=== PATIENT | female | born 1950 | race Caucasian/White ===

== ENCOUNTER 2023-03-29 06:45 | Outpatient (OUT) | payer MEDICARE, OTHER, SELFPAY ==
[2023-03-29 06:54] LABS: Basophils Absolute Auto 0.1 10^3/uL (0.0-0.1); Eosinophils Absolute Auto 0.2 10^3/uL (0.0-0.7); Eosinophils Percent Auto 4.1 % (0.9-7.0); Hematocrit 39.8 % (36.0-48.0); Immature Granulocytes Abs Auto 0.01 10^3/uL (0.00-0.03); Immature Granulocytes Pct Auto 0.2 % (0.0-0.5); Lymphocytes Absolute Auto 1.6 10^3/uL (1.2-3.8); Lymphocytes Percent Auto 27.6 % (20.5-60.0); Mean Corpuscular HGB Conc 32.7 g/dL (29.9-35.2); Mean Corpuscular Hemoglobin 29.7 pg (26.7-34.0); Mean Corpuscular Volume 91.1 fL (81.0-99.0); Mean Platelet Volume 10.1 fL (9.5-13.5); Monocytes Absolute Auto 0.5 10^3/uL (0.3-0.8); Monocytes Percent Auto 8.1 % (1.7-12.0); Neutrophils Absolute Auto 3.4 10^3/uL (1.4-6.5); Platelet Count 210 10^3/uL (150-450); Red Blood Count 4.37 10^6/uL (4.20-5.40); Red Cell Distribution Width 12.2 % (11.0-15.0); White Blood Count 5.8 10^3/uL (4.0-11.0)
[2023-03-29 07:18] LABS: Alanine Aminotransferase 23 U/L (14-59); Albumin Globulin Ratio 0.9; Albumin Level 3.5 g/dL (3.4-5.0); Alkaline Phosphatase 100 U/L (46-116); Anion Gap 11.4; Aspartate Amino Transferase 21 U/L (15-37); BUN Creatinine Ratio 16.5; Bilirubin Total 0.6 mg/dL (0.2-1.0); Calcium 9.5 mg/dL (8.5-10.1); Carbon Dioxide 29.5 mmol/L (21.0-32.0); Chloride 105 mmol/L (98-107); Chol HDL Ratio 3.4; Cholesterol 196 mg/dL (<=200); Estimated GFR (African America >60 (>=60); Estimated GFR (Non-African Ame 56 (>=60); Glucose 106 mg/dL (74-106); HDL Cholesterol 57 mg/dL (40-60); LDL Cholesterol Calculated 119.6 mg/dL; Potassium 3.9 mmol/L (3.5-5.1); Sodium 142 mmol/L (136-145); Total Protein 7.5 g/dL (6.4-8.2); Triglycerides 97 mg/dL (<=150); VLDL CHOLESTEROL 19.4 mg/dL
== END 2023-03-29 06:46 | disposition home or self-care (01) ==
LOC: LAB 06:45
PROVIDERS: PCP Family Medicine; Visit Provider Family Medicine
DX: I10 Essential (primary) hypertension (principal); E78.2 Mixed hyperlipidemia
CPT/HCPCS: 36415; 80053; 80061; 85025

== ENCOUNTER 2023-10-01 11:03 | Outpatient (OUT) | payer MEDICARE, OTHER, SELFPAY ==
--- NOTE | 2023-10-01 11:06 | MM_ITS ---
Patient Name: ALVARADO MEZA MR#: [id number] : 1950 Exam Date: 10/01/2023 Ordering Doctor: DR Cassandra Fraga M.D. RADIOLOGY REPORT PROCEDURE: MM TOMOSYNTHESIS SCREENING BI COMPARISON: MG MAMM RT DIAG FU, 10/14/2022. MG MAMM SCREEN 3D MAUREEN CAD, 09/28/2022. INDICATIONS: screening Calculator Name NCI Breast Cancer Risk Assessment Tool 5 Year Breast Cancer Risk 5.30% Lifetime Breast Cancer Risk 11.20% Personal Breast Cancer No Personal Ovarian Cancer No Treatments Excision Family Cancers Sister with breast cancer at age 61; Brother with throat cancer at age 60; Brother with prostate cancer at age 70. LOCATION: [facility] BREAST COMPOSITION: Heterogeneously dense,which may obscure small masses. FINDINGS: DIAGNOSTIC CATEGORY 2--BENIGN FINDING. NO CHANGE FROM COMPARISON. Scattered benign-appearing nodules are present. Scattered benign-appearing calcifications are present. Scattered benign-appearing lymph nodes are present. RIGHT BREAST: No significant suspicious finding. Two micro clip markers upper-outer quadrant, grossly stable adjacent calcifications LEFT BREAST: No significant suspicious finding. Stable micro clip marker lower inner quadrant with adjacent calcifications RECOMMENDATIONS: ROUTINE MAMMOGRAM AND CLINICAL EVALUATION IN 12 MONTHS. PLEASE NOTE: A NORMAL MAMMOGRAM DOES NOT EXCLUDE THE POSSIBILITY OF BREAST CANCER. A CLINICALLY SUSPICIOUS PALPABLE LUMP SHOULD BE BIOPSIED. Dictated by: Armnado August MD on 10/01/2023 at 13:23 Approved by: Armando August MD on 10/01/2023 at 13:25
== END 2023-10-01 11:04 | disposition home or self-care (01) ==
LOC: MAMMO 11:03
PROVIDERS: PCP Family Medicine; Visit Provider Family Medicine
DX: Z12.31 Encounter for screening mammogram for malignant neoplasm of breast (principal); Z80.3 Family history of malignant neoplasm of breast; Z80.42 Family history of malignant neoplasm of prostate; Z80.8 Family history of malignant neoplasm of other organs or systems
CPT/HCPCS: 77063; 77067

== ENCOUNTER 2023-10-11 22:41 | Emergency (ER) | payer MEDICARE, OTHER, SELFPAY ==
[2023-10-11 22:45] VITALS: BP 148/70; PULSE 87; RESP 16; TEMP 36.9; O2SAT 95; BMI 28.3
--- OUTSIDE RECORDS SUMMARY | 2023-10-11 22:48 | XMS_ITS | CCD ---
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 Name Role Phone MARCELINO MCPHERSON Unavailable Unavailable BALL, MARCELINO Beltran Unavailable Unavailable VALERO, ANJU Unavailable Unavailable VALERO, DR ANJU Beltran Admitting Unavailable VALERO, DR ANJU Beltran Attending Unavailable VALERO, DR ANJU Beltran Primary Care Unavailable Ziebbarbara, DR Marrero Consulting Unavailable VALERO, DR ANJU Beltran Consulting Unavailable VLAERO, DR ANJU Beltran Admitting Unavailable VALERO, DR ANJU Beltran Attending Unavailable VALERO, DR ANJU Beltran Primary Care Unavailable [place], DR ALYSON Pisano Consulting Unavailable VALERO, DR ANJU Beltran Consulting Unavailable VALERO, DR ANJU Beltran Admitting Unavailable VALERO, DR ANJU Beltran Attending Unavailable VALERO, DR ANJU Beltran Primary Care Unavailable VALERO, DR ANJU Beltran Consulting Unavailable GRILLIS, DR KEVIN Beltran Admitting Unavailabl e GRENEIDA, DR KEVIN Beltran Attending Unavailabl e VALERO, DR ANJU Beltran Primary Care Unavailable VALERO, DR ANJU Beltran Admitting Unavailable VALERO, DR ANJU Beltran Attending Unavailable VALERO, DR ANJU Beltran Primary Care Unavailable VALERO, DR ANJU Beltran Consulting Unavailable VALERO, DR ANJU Beltran Admitting Unavailable VALERO, DR ANJU Beltran Attending Unavailable VALERO, DR ANJU Beltran Primary Care Unavailable GRILLIArsenio, DR KEVIN Beltran Admitting Unavailabl e GRENEIDA, DR KEVIN Beltran Attending Unavailabl e VALERO, DR ANJU Beltran Primary Care Unavailable GRILLIArsenio, DR KEVIN Beltran Consulting Unavailchelita e MORGOArsenio, COLLIN Consulting Unavailable JEFFERSON PATEL Consulting Unavailable VALERO, DR ANJU Beltran Admitting Unavailable VALERO, DR ANJU Beltran Attending Unavailable VALERO, DR ANJU Beltran Primary Care Unavailable Zieber, DR Marrero Consulting Unavailable VALERO, DR AJNU Beltran Consulting Unavailable Problems Active Problems Problem Classification Problem Date Documented Date Episodic/Chronic Disorders of lipid metabolism (1 source) Hyperlipidemia, unspecified; Translations: [HYPERLIPIDEMIA UNSPECIFIED] Onset: 10-10-2022 Chronic Esophageal disorders (6 sources) 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; Translations: [Esophageal obstruction] Onset: 07-01-2022 Chronic Essential hypertension (1 source) Essential (primary) hypertension; Translations: [ESSENTIAL PRIMARY HYPERTENSION] Onset: 07-06-2022 Chronic Gastritis and duodenitis (1 source) Unspecified chronic gastritis without bleeding; Translations: [UNS CHRONIC GASTRITIS W/O BLEEDING] Onset: 07-06-2022 Chronic Other non-traumatic joint disorders (4 sources) Pain in right hip; Translations: [PAIN IN RIGHT HIP] Onset: 09-01-2022 Episodic Other nutritional; endocrine; and metabolic disorders (1 source) Obesity, unspecified; Translations: [OBESITY UNSPECIFIED] Onset: 07-06-2022 Chronic Other screening for suspected conditions (not mental disorders or infectious disease) (5 sources) Encounter for screening mammogram for malignant neoplasm of breast; Translations: [Other abnormal and inconclusive findings on diagnostic imaging of breast] Onset: 09-28-2022 Episodic Residual codes; unclassified (1 source) Family history of malignant neoplasm of breast; Translations: [FAMILY HX MALIG NEOPLASM OF BREAST] Onset: 10-02-2022 Episodic Residual codes; unclassified (1 source) Family history of malignant neoplasm of other respiratory and intrathoracic organs; Translations: [FAM HX MAL NEOPLSM OTH RESP AND IT ORGN] Onset: 10-02-2022 Episodic Residual codes; unclassified (1 source) Family history of malignant neoplasm of other organs or systems; Translations: [FAM HX MALIG NEOPLASM OTH ORGN/SYS] Onset: 10-02-2022 Episodic Unclassified (1 source) PERSONAL HISTORY OF COVID-19; Translations: [PERSONAL HISTORY OF COVID-19] Onset: 07-06-2022 Unclassified (3 sources) CONTACT W/AND (SUSP) EXPOS COVID-19; Translations: [CONTACT W/AND (SUSP) EXPOS COVID-19] Onset: 05-01-2022 Past or Other Problems Problem Classification Problem Date Documented Da te Episodic/Chronic Other aftercare (1 source) 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; Translations: [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 Admission #: [id number] Family : Order #: [id number] CLICK HERE TO VIEW EXAM RADIOLOGY REPORT PROCEDURE: MAMMOGRAM RIGHT DIAGNOSTIC DIGITAL FOLLOW UP, 10/14/2022, 10:25 ULTRASOUND BREAST RIGHT LIMITED, 10/14/2022, 11:11 COMPARISON: MG MAMM SCREEN 3D MAUREEN CAD, 09/28/2022. INDICATIONS: Abnormal findings on diagnostic imaging of breast Calculator Name NCI Breast Cancer Risk Assessment Tool 5 Year Breast Cancer Risk 5.30% Lifetime Breast Cancer Risk 11.90% Personal Breast Cancer No Personal Ovarian Cancer No Treatments Excision Family Cancers Sister with breast cancer at age 61; Brother with throat cancer at age 60; Brother with prostate cancer at age 70. LOCATION: [facility] BREAST COMPOSITION: Heterogeneously dense,which may obscure small masses. FINDINGS: DIAGNOSTIC CATEGORY 2--BENIGN FINDING. NO CHANGE FROM COMPARISON. Spot magnification views demonstrate geographic and clustered microcalcifications in the right breast with to micro clip markers. Three focal nodules are identified measuring 5.8, 5.4 and 4.7 mm. Ultrasound was performed demonstrating 3 focal areas of anechoic echogenicity measuring 5.6, 3.5 and 4.3 mm. Additional areas of punctate hyperechogenicity consistent with the calcifications seen by mammogram. No further evaluation is required. Return to yearly screening mammography. RECOMMENDATIONS: ROUTINE MAMMOGRAM AND CLINICAL EVALUATION IN 12 MONTHS. PLEASE NOTE: A NORMAL MAMMOGRAM DOES NOT EXCLUDE THE POSSIBILITY OF BREAST CANCER. A CLINICALLY SUSPICIOUS PALPABLE LUMP SHOULD BE BIOPSIED. Dictated by: Alyson August MD on 10/14/2022 at 11:35 Approved by: Alyson August MD on 10/14/2022 at 11:37 Normal [facility] US BREAST RIGHT LIMITEDon US BREAST RIGHT LIMITED Patient: ALVARADO MEZA Exam Date: 10/14/2022 : 1950 Gender:F Ordering : DR ANJU VALERO M.D. Admission #: [id number] Family : Order #: [id number] CLICK HERE TO VIEW EXAM RADIOLOGY REPORT PROCEDURE: MAMMOGRAM RIGHT DIAGNOSTIC DIGITAL FOLLOW UP, 10/14/2022, 10:25 ULTRASOUND BREAST RIGHT LIMITED, 10/14/2022, 11:11 COMPARISON: MG MAMM SCREEN 3D MAUREEN CAD, 09/28/2022. INDICATIONS: Abnormal findings on diagnostic imaging of breast Calculator Name NCI Breast Cancer Risk Assessment Tool 5 Year Breast Cancer Risk 5.30% Lifetime Breast Cancer Risk 11.90% Personal Breast Cancer No Personal Ovarian Cancer No Treatments Excision Family Cancers Sister with breast cancer at age 61; Brother with throat cancer at age 60; Brother with prostate cancer at age 70. LOCATION: [facility] BREAST COMPOSITION: Heterogeneously dense,which may obscure small masses. FINDINGS: DIAGNOSTIC CATEGORY 2--BENIGN FINDING. NO CHANGE FROM COMPARISON. Spot magnification views demonstrate geographic and clustered microcalcifications in the right breast with to micro clip markers. Three focal nodules are identified measuring 5.8, 5.4 and 4.7 mm. Ultrasound was performed demonstrating 3 focal areas of anechoic echogenicity measuring 5.6, 3.5 and 4.3 mm. Additional areas of punctate hyperechogenicity consistent with the calcifications seen by mammogram. No further evaluation is required. Return to yearly screening mammography. RECOMMENDATIONS: ROUTINE MAMMOGRAM AND CLINICAL EVALUATION IN 12 MONTHS. PLEASE NOTE: A NORMAL MAMMOGRAM DOES NOT EXCLUDE THE POSSIBILITY OF BREAST CANCER. A CLINICALLY SUSPICIOUS PALPABLE LUMP SHOULD BE BIOPSIED. Dictated by: Alyson August MD on 10/14/2022 at 11:35 Approved by: Alyson August MD on 10/14/2022 at 11:37 Normal [facility] MG MAMM SCREEN 3D MAUREEN CADon 09-28-2022 MG MAMM SCREEN 3D MAUREEN CAD Patient: ALVARADO MEZA Exam Date: 09/28/2022 : 1950 Gender:F Ordering : DR ANJU VALERO M.D. Admission #: [id number] Family : Order #: [id number] CLICK HERE TO VIEW EXAM RADIOLOGY REPORT PROCEDURE: MAMMOGRAM SCREENING 3D BILATERAL CAD COMPARISON: MG MAMM SCREEN MAUREEN W CAD, 09/12/2020. MAMMO POST BIOPSY LEFT, 09/24/2021. MG MAMM SCREEN 3D MAUREEN CAD, 09/15/2021. INDICATIONS: Screening mammography Calculator Name NCI Breast Cancer Risk Assessment Tool 5 Year Breast Cancer Risk 5.30% Lifetime Breast Cancer Risk 11.90% Personal Breast Cancer No Personal Ovarian Cancer No Treatments Excision Family Cancers Sister with breast cancer at age 61; Brother with throat cancer at age 60; Brother with prostate cancer at age 70. LOCATION: [facility] BREAST COMPOSITION: Heterogeneously dense,which may obscure small masses. FINDINGS: DIAGNOSTIC CATEGORY 0--INCOMPLETE: NEED ADDITIONAL IMAGING EVALUATION. RIGHT BREAST: Several tiny calcifications, and a 7 mm nodule with adjacent 6 mm nodule within the anterior right breast lower outer quadrant. Spot magnification views and ultrasound evaluation recommended. LEFT BREAST: Biopsy marker clip within upper inner quadrant in clearing of previously seen cyst. No significant suspicious finding. RECOMMENDATIONS: ADDITIONAL MAMMOGRAPHIC VIEWS REQUIRED: RIGHT BREAST - RIGHT CRANIOCAUDAL SPOT MAGNIFICATION VIEW - RIGHT OBLIQUE SPOT MAGNIFICATION VIEW - ULTRASOUND: RIGHT BREAST Active recommendations from prior exams: ROUTINE MAMMOGRAM AND CLINICAL EVALUATION IN [#MONTHS] MONTHS. Due on 10/02/2022. PLEASE NOTE: A NORMAL MAMMOGRAM DOES NOT EXCLUDE THE POSSIBILITY OF BREAST CANCER. A CLINICALLY SUSPICIOUS PALPABLE LUMP SHOULD BE BIOPSIED. Dictated by: Janes Morfin M.D. on 09/29/2022 at 12:00 Approved by: Janes Morfin M.D. on 09/29/2022 at 12:10 Normal [facility] Covid-19 PCR (CVDTBH)on SARS-CoV-2 (COVID-19) RNA OLINDA+probe Ql (Unsp spec) Not detected Normal NOT DETECTED [facility] Comment on above: Result Comment: This test is not yet approved or cleared by the [place] FDA. When there are no FDA-approved or cleared tests available, and other criteria are met, FDA can make tests available under an emergency access mechanism called an Emergency Use Authorization (EUA). The EUA for this test is supported by the [place] of Health and Human Service's (HHS's) declaration that circumstances exist to justify the emergency use of in vitro diagnostics for the detection and/or diagnosis of the virus that causes COVID-19. This EUA will remain in effect (meaning this test can be used) for the duration of the COVID-19 declaration justifying emergency of IVDs, unless it is terminated or revoked by FDA (after which the test may no longer be used). When diagnostic testing is negative, the possibility of a false negative should be considered in the context of a patient's recent exposures and the presence of clinical signs and symptoms consistent with SARS-CoV-2. Performed By: #### C VDTB #### [facility] [address] [place] [address] Dr. Valentin Shin CBC AUTO DIFFon 03-06-2022 BASO # 0.1 103/ul Normal 0.0-0.1 [facility] Comment on above: Performed By: #### C BC #### [facility] [address] [place] [address] Dr. Valentin Shin Basophils/100 WBC (Bld) 0.7 % Normal 0.2-2.0 [facility] Comment on above: Performed By: #### C BC #### [facility] [address] [place] [address] Dr. Valentin Shin EO # 0.1 103/ul Normal 0.0-0.7 [facility] Comment on above: Performed By: #### C BC #### [facility] [address] [place] [address] Dr. Valentin Shin Eosinophils/100 WBC (Bld) 2.0 % Normal 0.9-7.0 [facility] Comment on above: Performed By: #### C BC #### [facility] [address] [place] [address] Dr. Valentin Shin Erythrocyte distribution width (RBC) [Ratio] 12.4 % Normal 11.0-15.0 [facility] Comment on above: Performed By: #### C BC #### [facility] [address] [place] [address] Dr. Valentin Shin Hematocrit (Bld) [Volume fraction] 38.9 % Normal 36.0-48.0 [facility] Comment on above: Performed By: #### C BC #### [facility] [address] [place] [address] Dr. Valentin Shin Hemoglobin (Bld) [Mass/Vol] 12.9 g/dL Normal 12.0-16.0 [facility] Comment on above: Performed By: #### C BC #### [facility] [address] [place] [address] Dr. Valentin Shin IG # 0.01 10e3/ul Normal 0.00-0.03 [facility] Comment on above: Performed By: #### C BC #### [facility] [address] [place] [address] Dr. Valentin Shin IG % 0.1 % Normal 0.0-0.5 [facility] Comment on above: Performed By: #### C BC #### [facility] [address] [place] [address] Dr. Valentin Shin LYMPH # 1.3 103/ul Normal 1.2-3.8 [facility] Comment on above: Performed By: #### C BC #### [facility] [address] [place] [address] Dr. Valentin Shin Lymphocytes/100 WBC (Bld) 18.2 % Critically low 20.5-60.0 [facility] Comment on above: Performed By: #### C BC #### [facility] [address] [place] [address] Dr. Valentin Shin MANUAL DIFF REQ NO Normal [facility] Comment on above: Performed By: #### C BC #### [facility] [address] [place] [address] Dr. Valentin Shin MCH (RBC) [Entitic mass] 30.1 pg Normal 26.7-34.0 [facility] Comment on above: Performed By: #### C BC #### [facility] [address] [place] [address] Dr. Valentin Shin MCHC (RBC) [Mass/Vol] 33.2 g/dL Normal 29.9-35.2 [facility] Comment on above: Performed By: #### C BC #### [facility] [address] [address] [address] Valentin Shin MCV (RBC) [Entitic vol] 90.7 fL Normal 81.0-99.0 [facility] Comment on above: Performed By: #### C BC #### [facility] [address] [place] [address] Dr. Valentin Shin MONO # 0.6 103/ul Normal 0.3-0.8 [facility] Comment on above: Performed By: #### C BC #### [facility] [address] [place] [address] Dr. Valentin Shin Monocytes/100 WBC (Bld) 8.4 % Normal 1.7-12.0 [facility] Comment on above: Performed By: #### C BC #### [facility] [address] [place] [address] Dr. Valentin Shin NEUT # 5.0 103/ul Normal 1.4-6.5 [facility] Comment on above: Performed By: #### C BC #### [facility] [address] [place] [address] Dr. Valentin Shin Neutrophils/100 WBC (Bld) 70.6 % Normal 43.0-75.0 [facility] Comment on above: Performed By: #### C BC #### [facility] [address] [place] [address] Dr. Valentin Shin Platelet mean volume (Bld) [Entitic vol] 9.9 fL Normal 9.5-13.5 [facility] Comment on above: Performed By: #### C BC #### [facility] [address] [place] [address] Dr. Valentin Shin PLT 202 103/ul Normal 150-450 [facility] Comment on above: Performed By: #### C BC #### [facility] [address] [place] [address] Dr. Valentin Shin RBC 4.29 106/ul Normal 4.20-5.40 [facility] Comment on above: Performed By: #### C BC #### [facility] [address] [place] [address] Dr. Valentin Shin WBC 7.0 103/ul Normal 4.0-11.0 [facility] Comment on above: Performed By: #### C BC #### [facility] [address] [address] [address] Valentin Shin LIPID PROFILEon 03-06-2022 CHOL-HDL RATIO NORM SEE BELOW Normal [facility] Comment on above: Result Comment: 3.3 - 4.4 LOW RISK 4.4 - 7.1 AVERAGE RISK 7.1 - 11.0 MODERATE RISK >11.0 HIGH RISK Performed By: #### L IPID, CMP #### [facility] [address] [address] [address] Valentin Shin Cholesterol [Mass/Vol] 177 mg/dL Normal <=200 [facility] Comment on above: Performed By: #### L IPID, CMP #### [facility] [address] [address] [address] Valentin Shin Cholesterol in HDL [Mass/Vol] 57 mg/dL Normal 40-60 [facility] Comment on above: Performed By: #### L IPID, CMP #### [facility] [address] [address] [address] Valentin Shin Cholesterol in LDL [Mass/Vol] 101.0 mg/dL Normal [facility] Comment on above: Performed By: #### L IPID, CMP #### [facility] [address] [address] [address] Valentin Shin Cholesterol.total/ Cholesterol in HDL [Mass ratio] 3.1 {ratio} Normal [facility] Comment on above: Performed By: #### L IPID, CMP #### [facility] [address] [address] [address] Valentin Shin HDL NORMAL > or = 60 mg/dl - LO W CARDIOVASCULAR RISK <40 mg/dl - HIGH CARDIOVASCULAR RISK Normal [facility] Comment on above: Performed By: #### L IPID, CMP #### [facility] [address] [address] [address] Valentin Shin LDL CALC NORMAL SEE BELOW Normal [facility] Comment on above: Result Comment: <100 mg/dl OPTIMAL 100 - 129 mg/dl NEAR OR ABOVE OPTIMAL 130 - 159 mg/dl BORDERLINE HIGH 160 - 189 mg/dl HIGH >190 mg/dl VERY HIGH Performed By: #### L IPID, CMP #### [facility] [address] [place] [address] Dr. Valentin Shin Triglyceride [Mass/Vol] 95 mg/dL Normal <=150 [facility] Comment on above: Performed By: #### L IPID, CMP #### [facility] [address] [place] [address] Dr. Valentin Shin VLDL CALC 19.0 mg/dL Normal [facility] Comment on above: Performed By: #### L IPID, CMP #### [facility] [address] [place] [address] Dr. Valentin Shin PROF 14(COMP METB)on 022 Albumin [Mass/Vol] 3.7 g/dL Normal 3.4-5.[address] [facility] Comment on above: Performed By: #### L IPID, CMP #### [facility] [address] [place] [address] Dr. Valentin Shin Albumin/Globulin [Mass ratio] 1.0 {ratio} Normal [facility] Comment on above: Performed By: #### L IPID, CMP #### [facility] [address] [place] [address] Dr. Valentin Shin ALP [Catalytic activity/Vol] 93 U/L Normal 46-116 [facility] Comment on above: Performed By: #### L IPID, CMP #### [facility] [address] [place] [address] Dr. Valentin Shin ALT [Catalytic activity/Vol] 20 U/L Normal 14-59 [facility] Comment on above: Performed By: #### L IPID, CMP #### [facility] [address] [place] [address] Dr. Valentin Shin Anion gap [Moles/Vol] 10.2 mmol/L Normal [facility] Comment on above: Performed By: #### L IPID, CMP #### [facility] [address] [place], [place] [id number] Dr. Valentin Shin AST [Catalytic activity/Vol] 17 U/L Normal 15-37 [facility] Comment on above: Performed By: #### L IPID, CMP #### [facility] [address] [place] [address] Dr. Valentin Shin Bilirubin [Mass/Vol] 0.6 mg/dL Normal 0.2-1.0 [facility] Comment on above: Performed By: #### L IPID, CMP #### [facility] [address] [place] [address] Dr. Valentin Shin Calcium [Mass/Vol] 9.8 mg/dL Normal 8.5-10.[address] [facility] Comment on above: Performed By: #### L IPID, CMP #### [facility] [address] [place] [address] Dr. Valentin Shin Chloride [Moles/Vol] 107 mmol/L Normal 98-107 [facility] Comment on above: Performed By: #### L IPID, CMP #### [facility] [address] [place] [address] Dr. Valentin Shin CO2 [Moles/Vol] 28.9 mmol/L Normal 21.0-32.0 [facility] Comment on above: Performed By: #### L IPID, CMP #### [facility] [address] [place] [address] Dr. Valentin Shin Creatinine [Mass/Vol] 0.88 mg/dL Normal 0.55-1.02 [facility] Comment on above: Performed By: #### L IPID, CMP #### [facility] [address] [place] [address] Dr. Valentin Shin EGFR-AF SAMOAN >60 Normal >=60 [facility] Comment on above: Performed By: #### L IPID, CMP #### [facility] [address] [place] [address] Dr. Valentin Shin EGFR-NON AF SAMOAN >60 Normal >=60 [facility] Comment on above: Performed By: #### L IPID, CMP #### [facility] [address] [address] [address] Valentin Shin Globulin (S) [Mass/Vol] 3.6 g/dL Normal [facility] Comment on above: Performed By: #### L IPID, CMP #### [facility] [address] [address] [address] Valentin Shin Glucose [Mass/Vol] 102 mg/dL Normal 74-106 [facility] Comment on above: Performed By: #### L IPID, CMP #### [facility] [address] [address] [address] Valentin Shin Potassium [Moles/Vol] 4.1 mmol/L Normal 3.5-5.1 [facility] Comment on above: Performed By: #### L IPID, CMP #### [facility] [address] [place] [address] Dr. Valentin Shin Protein [Mass/Vol] 7.3 g/dL Normal 6.4-8.2 [facility] Comment on above: Performed By: #### L IPID, CMP #### [facility] [address] [address] [address] Valentin Shin Sodium [Moles/Vol] 142 mmol/L Normal 136-145 [facility] Comment on above: Performed By: #### L IPID, CMP #### [facility] [address] [address] [address] Valentin Shin Urea nitrogen [Mass/Vol] 17.0 mg/dL Normal 7.0-18.0 [facility] Comment on above: Performed By: #### L IPID, CMP #### [facility] [address] [place] [address] Dr. Valentin Shin Urea nitrogen/Creatinin e [Mass ratio] 19.3 mg/mg Normal [facility] Comment on above: Performed By: #### L IPID, CMP #### [facility] [address] [place] [address] Dr. Valentin Shin OVER READ - NCon 04-20-2018 OVER READ - [place] DATE OF EXAM: Apr 20 2018 1:16PMCLINICAL HISTORY/ Name: ANASTACIO MEZA:OVER READ - [place]; 04/20/2018 1:16 pmINDICATION:score.COMP FLAVIASON:None. ERING CLINICIAN:MARCELINO ALVA:The following is to serve as an over-read for a coronary artery calcium score, to evaluate the extra arterial structures.Contiguous unenhanced CT sections are performed from the level of the main pulmonary artery to the upper abdomen.FINDINGS:Small linear areas of atelectasis are identified in the left lower lobe and medial right lower lobe. There is a subpleural nodule within the lateral aspect of the lingula measuring 5 mm in diameter.There is no sign of pathologic lymph node enlargement. The heart is mildly enlarged. There is no pericardial or pleural effusion.Images through the upper most abdomen demonstrate a small hiatal hernia though otherwise unremarkable.Visualized osseous and soft tissue structures of the chest wall are intact.CONCLUSION: IMPRESSION:Bibasilar linear atelectasis, greater on the left.5 mm sub nodule in the lingula. Continued CT surveillance is recommended which can be performed in 6 months.Small hiatal hernia. Normal [facility] Encounters Encounter Date Encounter Type Care Provider Facility Start: 10-14-2022 End: 10-15-[address] ANJU VALERO Facility:[facility] Start: 09-28-2022 End: 09-29-[address] ANJU VLAERO Facility:[facility] Start: 09-01-2022 End: 09-09-[address] ANJU VALERO Facility:[facility] Start: 08-19-2022 End: 08-20-[address] ANJU VALERO Facility:[facility] Start: 07-01-2022 End: 07-01-[address] KEVIN MARTI Facility:[facility] Start: 06-27-[address] KEIVN MARTI Fa cility:[facility] Start: 04-28-2022 End: 04-29-[address] ANJU VALERO Facility:[facility] Start: 03-10-2022 Encounter for genera l adult medical examination without abnormal findings DR ANJU VALERO [facility] Start: 03-06-2022 End: 03-07-[address] ANJU VALERO Facility:[facility] Start: 03-06-2022 End: 03-07-2022 Encounter for general adult medical examination without abnormal findings DR ANJU VALERO Facility:[facility] Start: 04-20-2018 Patient encounter [facility] Fa cility:[id number] Start: 04-20-2018 Patient encounter [facility] ity:[id number] Payers Date Payer Category Payer Medicare [id number] 1961 Unknown [id number] 1950 Unknown [id number] 2.16.84 [id number] 1950 Unknown [id number] 2.16.84 [id number] 1950 Unknown [id number] 2.16.84 [id number] 1950 Unknown [id number] 2.16.84 [id number] 1950 Unknown [id number] 2.16.84 [id number] 1950 Unknown [id number] 2.16.84 [id number] 1950 Unknown [id number] 2.16.84 [id number] 1950 Unknown [id number] 2.16.84 [id number] Unknown ALVARADO MEZA Clinical Note 08-20-2022 Note Date & Type Note Facility 08-20-2022 Note PROCEDURE: XR HIP RT 2 3V WO PELVIS HISTORY: Pain in right hip joint ; acute right hip pain, no known injury COMPARISON: None. FINDINGS: BONES:No fracture, acute abnormality, or significant arthropathy. SOFT TISSUES:No visible soft tissue swelling. EFFUSION:None visible. OTHER: Negative. IMPRESSION: 1. No acute bone abnormality or significant degenerative joint disease. Electronically authenticated by: JANES MORFIN Date: 2022-08-19 23:15 [facility] Summary Purpose Family History No Family History Records FoundNo Family History Records FoundNo Family History Records Found Advance Directives No Advanced Directives Records FoundNo Advanced Directives Records FoundNo Advanced Directives Records Found Additional Source Comments INFORMATION SOURCE (unrecogn ized section and content) DATE CREATED AUTHOR 04/21/2018 [facility] DATE CREATED AUTHOR AUTHOR'S ORGANIZ ATION 04/21/2018 [facility] DATE CREATED AUTHOR AUTHOR'S ORGANIZ ATION 10/15/2022 [facility] FOR RECORDS PERTAINING TO PATIENTS WHO ARE OR HAVE BEEN ENROLLED IN A CHEMICAL DEPENDENCY/SUBSTANCEABUSE PROGRAM, SOME INFORMATION MAY BE OMITTED. This clinical summary was aggregated from multiple sources. Caution should be exercised in using it in the provision of clinical care. This summary normalizes information from multiple sources, and as a consequence, information in this document may materially change the coding, format and clinical context of patient data. In addition, data may be omitted in some cases. CLINICAL DECISIONS SHOULD BE BASED ON THE PRIMARY CLINICAL RECORDS. [email or web address] provides no warranty or guarantee of the accuracy or completeness of information in this document.
[2023-10-11 22:56] VITALS: O2SAT 96
--- NOTE | 2023-10-11 22:57 | ED_ITS ---
HPI - Nausea/Vomiting/Diarrhea General Chief complaint: Nausea/Vomiting/Diarrhea Stated complaint: Flu Like Symptoms Time Seen by Provider: 10/11/23 22:48 Source: patient Mode of arrival: walk-in History of Present Illness HPI Narrative: This 73-year-old female presents for evaluation of copious nasal drainage with a dry cough and nausea with 4 episodes of vomiting. The patient states that she had her just got back from a cruise in the [facility]. He started becoming sick during their cruise and she did not think she was going to catch it until this morning when she started with cough and runny nose. She states that her nose has been running so much that she used a whole box of Kleenex. She has also had nausea with 4 episodes of vomiting throughout the day. She has not had any diarrhea. She has not had a fever. She denies any specific pain complaint but states she feels like she is 73 and typically she does not feel her age. She requests some zofran for her nausea, she had some in the past but threw it out. Denies any abdominal pain. She states she did not think she was going to be able to get through the night with the nausea and runny nose. She has been vaccinated against respiratory syncytial virus, influenza and Covid 19. She is a nonsmoker. She denies any chest pain or difficulty breathing or swallowing. Related Data Home Medications Medication Instructions Recorded Confirmed alprazolam 0.25 mg tablet mg PO PRN anxiety 10/11/23 atorvastatin 10 mg tablet 10 mg PO DAILY 10/11/23 10/11/23 metoprolol succinate 25 mg 25 mg PO DAILY 10/11/23 10/11/23 tablet,extended release 24 hr omeprazole 40 mg capsule,delayed 40 mg PO DAILY 10/11/23 10/11/23 release ramipril 2.5 mg capsule 2.5 mg PO DAILY 10/11/23 10/11/23 Allergies Allergy/AdvReac Type Severity Reaction Status Date / Time No Known Drug Allergies Allergy Verified 10/11/23 22:49 Review of Systems ROS Status of ROS 10 or more systems reviewed and unremark able except as noted in history and below Exam Narrative Exam Narrative: Nurses note and vital signs reviewed and patient is not hypoxic. Blood pressure noted to be elevated at 148/70 General: The patient appears well and in no apparent distress. Patient is resting comfortably on cart. Skin: Warm, dry, no pallor noted. There is no rash noted. Head: Normocephalic, atraumatic Eye: Normal conjunctiva, no drainage, EOMI. PERRL Ears, Nose, Mouth, and Throat: oral mucosa is moist. Nares patent. Mouth without vesicles. Audible nasal congestion, no swelling of the tongue, uvula or pharyngeal soft tissues Cardiovascular: Regular Rate and Rhythm S1S2, pulses are brisk and equal bilaterally Respiratory: Patient is in no distress, no accessory muscle use, lungs are bro r to auscultation, no wheezing, rales or rhonchi Back: non-tender, no CVA tenderness bilaterally to percussion. GI: Normal bowel sounds, no tenderness to palpation, no masses appreciated. No rebound, guarding, or rigidity noted. Musculoskeletal: The patient has no evidence of calf tenderness, no pitting edema, symmetrical pulses noted bilaterally Neurological: A&O x4, normal speech Psychiatric: Cooperative Constitutional Vital Signs, click to edit/add: Last Vital Signs Temp 98.5 F 10/11/23 22:45 Pulse 87 10/11/23 22:45 Resp 16 10/11/23 22:45 BP 148/70 H 10/11/23 22:45 Pulse Ox 96 10/11/23 22:56 O2 Del Method Room Air 10/11/23 22:56 Course Vital Signs Vital signs: Vital Signs Temperature 98.5 F 10/11/23 22:45 Pulse Rate 87 10/11/23 22:45 Respiratory Rate 16 10/11/23 22:45 Blood Pressure 148/70 H 10/11/23 22:45 Pulse Oximetry 95 10/11/23 22:45 Oxygen Delivery Method Room Air 10/11/23 22:45 Temperature 98.5 F 10/11/23 22:45 Pulse Rate 87 10/11/23 22:45 Respiratory Rate 16 10/11/23 22:45 Blood Pressure 148/70 H 10/11/23 22:45 Pulse Oximetry 96 10/11/23 22:56 Oxygen Delivery Method Room Air 10/11/23 22:56 MDM - Nausea/Vomiting/Diarrhea MDM Narrative Medical decision making narrative: 73-year-old female, nonsmoker, presents for evaluation of one day of copious nasal drainage and nausea with several episodes of vomiting. Her is sick with a similar illness. They both were on a cruise ship and returned home earlier today. He denies any chest pain or shortness of breath. Her blood pressure is noted to be mildly elevated upon arrival. She has nasal congestion that she states is gagging her but her main complaint is nausea with several episodes of vomiting. She has not had any diarrhea. She has not had a fever. She has no abdominal pain. She requests Zofran for her nausea. Covid 19, influenza and respiratory syncytial virus were ordered. She was medicated with Zofran emergency department. She declined the need for Tylenol or Motrin stating that she could take those at home. Her COVID 19 and influenza testing is negative. She was feeling better after the zofran and was given a dose to take home and Rx for zofran to use as needed. Lab Data Labs: Lab Results 10/11/23 Range/Units 22:50 Influenza Type A Ag Negative Influenza Type B Ag Negative SARS-CoV-2 Ag (CV2AG) Negative (NEGATIVE) Discharge Plan Discharge Chief Complaint: Nausea/Vomiting/Diarrhea Clinical Impression: Acute viral syndrome Patient Disposition: Home, Self-Care Time of Disposition Decision: 23:41 Condition: Good Prescriptions / Home Meds: No Action omeprazole 40 mg capsule,delayed release(DR/EC) 40 mg PO DAILY alprazolam 0.25 mg tablet PO PRN (Reason: anxiety) ramipril 2.5 mg capsule 2.5 mg PO DAILY metoprolol succinate 25 mg tablet extended release 24 hr 25 mg PO DAILY atorvastatin 10 mg tablet 10 mg PO DAILY Instructions: Viral Syndrome (ED) Stand Alone Forms: Portal Instructions Referrals: Cassandra Fraga MD [Primary Care Provider] - 1 week Discharge Date/Time: 10/11/23 23:53
[2023-10-11] MEDS: ONDANSETRON 4 MG RAPDIS TABLET SL ×2 (23:11→23:51)
[2023-10-11 23:36] LABS: Influenza Virus A Antigen Negative; Influenza Virus B Antigen Negative; SARS-CoV-2 Ag NEGATIVE (NEGATIVE)
[2023-10-11 23:37] LABS: Internal Control Within Normal Limits
== END 2023-10-11 23:53 | disposition home or self-care (01) ==
PROVIDERS: Emergency Provider Emergency Medicine; PCP Family Medicine
DX: B34.9 Viral infection, unspecified (principal); Z79.899 Other long term (current) drug therapy; Z20.822 Contact with and (suspected) exposure to COVID-19
CPT/HCPCS: 87635; 87804; 87811; 99284; Q0162

== ENCOUNTER 2024-03-07 04:19 | Emergency (ER) | payer MEDICARE, OTHER, SELFPAY ==
[2024-03-07 04:21] VITALS: BP 162/82; PULSE 65; TEMP 36.9; O2SAT 94; BMI 28.7
--- NOTE | 2024-03-07 04:33 | CT_ITS ---
[address] [address] Patient Name: ALVARADO MEZA MRN: [id number] date: 1950 Sex: F Assigned Patient Location: ER Current Patient Location: Accession/Order Number: [id number] Exam Date: 03/07/2024 04:55 Report Date: 03/07/2024 05:41 At the request of: EUSEBIA CONWAY Procedure: CT cervical spine wo con EXAMINATION: CT Cervical Spine without IV Contrast TECHNIQUE: Standard protocol axial Cervical spine CT was performed without intravenous contrast. Multiplanar reformatted images were created according to the routine protocol. Q DOCUMENTATION: At least one of the following dose reduction techniques was utilized: Iterative reconstruction, and/or Automatic Exposure Control, and/or mA/kV adjustment based on body size. INDICATION: . Atraumatic pain COMPARISON: None FINDINGS: Segmentation: There are 7 cervical vertebrae. Alignment: Normal AP alignment. Vertebrae: No evidence of acute fractures or significant losses of vertebral body heights. Intervertebral Discs: Disc spaces are preserved. There are prominent anterior and lateral endplate osteophytes at multiple levels. Spinal Canal: Tiny posterior disc bulges and/or disc osteophyte complexes at C3-C4 through C6-C7. This results in mild spinal canal narrowing at these levels. Neural foramina: Minimal uncovertebral arthropathy at multiple levels. There is also mild multilevel facet arthropathy. No significant foraminal stenosis. Paraspinal Tissues: Unremarkable. Additional Findings: None. CT/CT cervical spine wo con IMPRESSION: 1. No CT evidence of acute abnormalities throughout the cervical spine. If symptoms persist, further assessment with MRI should be considered. 2. There are degenerative changes throughout cervical spine. Electronically authenticated by: JOSE HERNANDEZ Date: 03/07/2024 05:41
--- NOTE | 2024-03-07 04:33 | ED.NECK1 ---
HPI HPI - Neck Pain/Injury General Chief Complaint: Neck Pain/Injury Stated Complaint: NECK PAIN Time Seen by Provider: 03/07/24 04:30 Source: patient Mode of arrival: walk-in Limitations: no limitations History of Present Illness HPI Narrative: 73-year-old female presents for left neck pain. She has had a small amount of pain for the last week and there was no associated trauma. Tonight she had fallen asleep and her neck woke her up and she was having what she describes as a spasm. No weakness or numbness in her arms and she does not have a headache. She points to the posterior left lower cervical area. Related Data Home Medications ?Medication ?Instructions ?Recorded ?Confirmed alprazolam 0.25 mg tablet mg PO PRN anxiety 10/11/23 atorvastatin 10 mg tablet 10 mg PO DAILY 10/11/23 10/11/23 metoprolol succinate 25 mg 25 mg PO DAILY 10/11/23 10/11/23 tablet,extended release 24 hr omeprazole 40 mg capsule,delayed 40 mg PO DAILY 10/11/23 10/11/23 release ramipril 2.5 mg capsule 2.5 mg PO DAILY 10/11/23 10/11/23 Previous Rx's ?Medication ?Instructions ?Recorded methocarbamol 500 mg tablet 500 mg PO Q8H PRN pain #20 tabs 03/07/24 Allergies Allergy/AdvReac Type Severity Reaction Status Date / Time No Known Drug Allergies Allergy Verified 03/07/24 04:26 Opioid HPI Opioid Management Most Recent Opioid Data: No Data to Display Review of Systems ROS Narrative A ten point review of systems is negative except as noted above. Exam Narrative Exam Narrative: Nurses note and vital signs reviewed and patient is not hypoxic. General: The patient appears uncomfortable. She is holding her left neck. Skin: Warm, dry, no pallor noted. There is erythema in the area of question but she has had a heating pad on it. Head: Normocephalic, atraumatic Eye: Normal conjunctiva, no drainage Ears, Nose, Mouth, and Throat: oral mucosa is moist. Nares patent. Cardiovascular: Regular Rate and Rhythm Respiratory: Patient is in no distress, no accessory muscle use, lungs are clear to auscultation, no wheezing, rales or rhonchi Back: non-tender GI: Soft and nontender Musculoskeletal: No joint swelling Neurological: Awake and alert, upper and lower extremity strength intact Psychiatric: Cooperative Constitutional Vital Signs, click to edit/add: Last Vital Signs Temp 98.4 F 03/07/24 04:21 Pulse 65 03/07/24 04:21 Resp 20 03/07/24 04:21 BP 162/82 H 03/07/24 04:21 Pulse Ox 94 L 03/07/24 04:21 O2 Del Method Room Air 03/07/24 04:21 Course Vital Signs Vital signs: Vital Signs Temperature 98.4 F 03/07/24 04:21 Pulse Rate 65 03/07/24 04:21 Respiratory Rate 20 03/07/24 04:21 Blood Pressure 162/82 H 03/07/24 04:21 Pulse Oximetry 94 L 03/07/24 04:21 Oxygen Delivery Method Room Air 03/07/24 04:21 Temperature 98.4 F 03/07/24 04:21 Pulse Rate 65 03/07/24 04:21 Respiratory Rate 03/07/24 04:21 Blood Pressure 162/82 H 03/07/24 04:21 Pulse Oximetry 94 L 03/07/24 04:21 Oxygen Delivery Method Room Air 03/07/24 04:21 MDM - Neck Pain/Injury MDM Narrative Medical decision making narrative: The patient feels improved and her CT is essentially negative. She is able to be discharged home on Robaxin. Treatment diagnosis and follow-up were discussed with the patient. Differential Diagnosis Differential diagnosis: Likely disc disorder of cervical region, cervical radiculopathy, strain of neck muscle and other (Torticollis) Discharge Plan Discharge Stand Alone Forms: Portal Instructions Chief Complaint: Neck Pain/Injury Clinical Impression: Torticollis Patient Disposition: Home, Self-Care Time of Disposition Decision: 05:51 Condition: Good Mode of Transportation: Private Vehicle Prescriptions / Home Meds: New methocarbamol 500 mg tablet 500 mg PO Q8H PRN (Reason: pain) Qty: 20 0RF No Action omeprazole 40 mg capsule,delayed release(DR/EC) 40 mg PO DAILY alprazolam 0.25 mg tablet PO PRN (Reason: anxiety) ramipril 2.5 mg capsule 2.5 mg PO DAILY metoprolol succinate 25 mg tablet extended release 24 hr 25 mg PO DAILY atorvastatin 10 mg tablet 10 mg PO DAILY Print Language: Yoruba Instructions: Neck Pain (ED) Referrals: Cassandra Fraga MD [Primary Care Provider] - 1 week
[2024-03-07] MEDS: KETOROLAC TROMETHAMINE 60 MG/2 ML VIAL IM (04:48)
[2024-03-07] MEDS: ORPHENADRINE 60 MG/ 2 ML VIAL IM (04:48)
--- OUTSIDE RECORDS SUMMARY | 2024-03-07 04:53 | XMS_ITS | CCD ---
Author Organization 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 Role Phone MARCELINO MCPHERSON Unavailable Unavailable BALL, MARCELINO Beltran Unavailable Unavailable VALERO, CASSANDRA Unavailable Unavailable VALERO, DR CASSANDRA Beltran Admitting Unavailable VALERO, DR CASSANDRA Beltran Attending Unavailable VALERO, DR CASSANDRA Beltran Primary Care Unavailable Zieber, DR Marrero Consulting Unavailable VALERO, DR CASSANDRA Beltran Consulting Unavailable VALERO, DR CASSANDRA Beltran Admitting Unavailable VALERO, DR CASSANDRA Beltran Attending Unavailable VALERO, DR CASSANDRA Beltran Primary Care Unavailable [place], DR ALYSON Pisano Consulting Unavailable VALERO, DR CASSANDRA Beltran Consulting Unavailable VALERO, DR CASSANDRA Beltran Admitting Unavailable VALERO, DR CASSANDRA Beltran Attending Unavailable VALERO, DR CASSANDRA Beltran Primary Care Unavailable VALERO, DR CASSANDRA Beltran Consulting Unavailable GRILLIS, DR KEVIN Beltran Admitting Unavailabl e GRILLIS, DR KEVIN Beltran Attending Unavailabl e VALERO, DR CASSANDRA Beltran Primary Care Unavailable VALERO, DR CASSANDRA Beltran Admitting Unavailable VALERO, DR CASSANDRA Beltran Attending Unavailable VALERO, DR CASSANDRA Beltran Primary Care Unavailable VALERO, DR CASSANDRA Beltran Consulting Unavailable VALERO, DR CASSANDRA Beltran Admitting Unavailable VALERO, DR CASSANDRA Beltran Attending Unavailable VALERO, DR CASSANDRA Beltran Primary Care Unavailable GRILLIS, DR KEVIN Beltran Admitting Unavailabl e GRILLIS, DR KEVIN Beltran Attending Unavailabl e VALERO, DR CASSANDRA Beltran Primary Care Unavailable GRILLIS, DR KEVIN Beltran Consulting Unavailabl e MORGOS, COLLIN Consulting Unavailable SHARP, JEFFERSON Consulting Unavailable VALERO, DR CASSANDRA Beltran Admitting Unavailable VALERO, DR CASSANDRA Beltran Attending Unavailable VALERO, DR CASSANDRA Beltran Primary Care Unavailable Zieber, DR Marrero Consulting Unavailable VALERO, DR CASSANDRA Beltran Consulting Unavailable Valero, Cassandra Unavailable Allergies Allergy Classification Reported Allergen(s) Allergy Type Date of Onset Reaction(s) Facility (1 source) patient allergy list reviewed by 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 Propensity to adverse reactions Comment:Done [employer] Other (1 source) Allergies Reconciled Propensity to adverse reactions Unknown [employer] Other Medications Current Medications Medication Drug Class(es) Dates Sig (Normalized) Sig (Original) ALPRAZolam 0.25 mg oral tablet (4 sources) Benzodiazepine Start: 01-05-2024 End: 01-05-2024 take 1 tablet by mouth once daily Alprazolam (Xanax) 0.25 mg tablet Active 0.25 MG PO Daily January 05, 2024 1:35pm Start: 01-04-2024 End: 01-05-2024 take 1 tablet by mouth twice daily Alprazolam (Xanax) 0.25 mg tablet Discontinued 0.25 MG PO Twice daily January 04, 2024 12:00am January 05, 2024 1:34pm Start: 04-12-2023 take 1 tablet by diego th twice daily as needed Xanax 0.25 MG 1 tablet Orally Twice a day prn for 30 days Mar, Active atorvastatin 10 mg oral tablet (2 sources) HMG-CoA Reductase Inhibitor Start: 02-28-2024 take 1 tablet by mouth once daily Atorvastatin Active 1 TAB PO Daily February 28, 2024 12:00am [employer] tablet Orally Once a day; Note: Source Status: Taking; Refills: 3; Qty: 90 Tablet; Provider: Flakito Beltran Start: 10-29-2022 take 1 tablet by diego th every twenty-four hours Atorvastatin Calcium 10 MG 1 tablet Orally Once a day for 90 days Oct, Active fluticasone propionate 0.05 mg/actuat metered dose nasal spray (1 source) Corticosteroid Start: 12-29-2023 take 1 spray(s) nasal route once daily Fluticasone Propionate Active 2 SPRAY INTRANASAL Daily December 29, 2023 12:00am administer into each nostril latanoprost 0.05 mg/ml ophthalmic solution (1 source) Prostaglandin Analog Start: 02-29-2024 take 1 drop(s) into the eye(s) once daily Latanoprost Active 1 DROPS EYE-BOTH Daily February 29, 2024 12:00am 24 hr metoprolol succinate 25 mg extended release oral tablet (2 sources) beta-Adrenergic Denny Start: 02-28-2024 take 1 tablet by mouth once daily Metoprolol Succinate Active 1 TAB PO Daily February 28, 2024 12:00am FreeTextSig: TAKE 1 TABLET DAILY; Note: Source Status: Start; Refills: 3; Qty: 90 Tablet; Provider: Flakito Trujillo ( ) Metoprolol Succi harish ER 25 mg TAKE 1 TABLET DAILY Active omeprazole 40 mg delayed release oral capsule (2 sources) Proton Pump Inhibitor Start: 02-28-2024 take 1 capsule by mouth once daily Omeprazole Active 1 CAP PO Daily February 28, 2024 12:00am [employer] capsule 30 minutes before morning meal Orally Once a day; Note: Source Status: Refill; Refills: 3; Qty: 90 Capsule; Provider: Flakito Beltran Start: 10-29-2022 take 1 capsule by mo uth once daily Omeprazole 40 MG 1 capsule 30 minutes before morning meal Orally Once a day for 90 days Oct, Active ramipril 2.5 mg oral capsule (2 sources) Angiotensin Converting Enzyme Inhibitor Start: 02-28-2024 take 1 capsule by mouth once daily Ramipril Active 1 CAP PO Daily February 28, 2024 12:00am [employer] capsule Orally Once a day; Note: Source Status: Refill; Refills: 3; Qty: 90 Capsule; Provider: Flakito Beltran Start: 10-29-2022 take 1 capsule by mo uth every twenty-four hours Ramipril 2.5 MG 1 capsule Orally Once a day for 90 days Oct, Active Problems Active Problems Problem Classification Problem Date Documented Da te Episodic/Chronic Adjustment disorders (1 source) Stress; Translations: [Reaction to severe stress, unspecified] Chronic Anxiety disorders (3 sources) Anxiety disorder; Translations: [Anxiety disorder, unspecified] Onset: 09-01-2016 01-05-2024 Chronic Cardiac dysrhythmias (1 source) Cardiac arrhythmia; Translations: [Cardiac arrhythmia, unspecified] Chronic Conditions associated with dizziness or vertigo (1 source) Peripheral vertigo; Translations: [Other peripheral vertigo, bilateral] Episodic Diseases of mouth; excluding dental (1 source) Disorder of lip; Translations: [Diseases of lips] Episodic Disorders of lipid metabolism (3 sources) Hyperlipidemia, unspecified; Translations: [Hyperlipidemia] Onset: 07-06-2022 Chronic Esophageal disorders (8 sources) 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; Translations: [Esophageal obstruction] Onset: 08-14-2015 Chronic Essential hypertension (2 sources) Essential (primary) hypertension; Translations: [Essential hypertension] Onset: 07-06-2022 Chronic Gastritis and duodenitis (1 source) Unspecified chronic gastritis without bleeding; Translations: [UNS CHRONIC GASTRITIS W/O BLEEDING] Onset: 07-06-2022 Chronic Genitourinary symptoms and ill-defined conditions (1 source) Dysuria; Translations: [Dysuria] Episodic Glaucoma (1 source) Glaucoma; Translations: [Unspecified glaucoma] Onset: 08-30-2015 Chronic Other bone disease and musculoskeletal deformities (1 source) Bone density finding; Translations: [Other specified disorders of bone density and structure, unspecified site] Episodic Other circulatory disease (1 source) Elevated blood-pressure reading without diagnosis of hypertension; Translations: [Elevated blood-pressure reading, without diagnosis of hypertension] Episodic Other inflammatory condition of skin (1 source) Pruritus of genital organs; Translations: [Anogenital pruritus, unspecified] Episodic Other injuries and conditions due to external causes (1 source) History of fall; Translations: [History of falling] Episodic Other non-traumatic joint disorders (4 sources) Pain in right hip; Translations: [PAIN IN RIGHT HIP] Onset: 09-01-2022 Episodic Other non-traumatic joint disorders (1 source) Pain in right hip joint; Translations: [Pain in right hip] Episodic Other nutritional; endocrine; and metabolic disorders (1 source) Obesity, unspecified; Translations: [OBESITY UNSPECIFIED] Onset: 07-06-2022 Chronic Other nutritional; endocrine; and metabolic disorders (1 source) Hypercalcemia; Translations: [Hypercalcemia] Onset: 02-07-2019 Chronic Other screening for suspected conditions (not mental disorders or infectious disease) (6 sources) Encounter for screening mammogram for malignant neoplasm of breast; Translations: [Other abnormal and inconclusive findings on diagnostic imaging of breast] Onset: 09-28-2022 Episodic Other upper respiratory disease (1 source) Seasonal allergic rhinitis; Translations: [Other seasonal allergic rhinitis] Chronic Otitis media and related conditions (1 source) Non-suppurative otitis media; Translations: [Unspecified nonsuppurative otitis media, bilateral] Episodic Residual codes; unclassified (1 source) Family [...] MALIG NEOPLASM OTH ORGN/SYS] Onset: 10-02-2022 Episodic Residual codes; unclassified (1 source) Postmenopausal state; Translations: [Asymptomatic menopausal state] Episodic Residual codes; unclassified (1 source) Menopause present; Translations: [Asymptomatic menopausal state] 02-29-2024 Episodic Residual codes; unclassified (1 source) Asymptomatic menopausal state; Translations: [Symptomatic menopausal or female climacteric states] 02-29-2024 Episodic Sprains and strains (1 source) Strain of other muscles, fascia and tendons at shoulder and upper arm level, right arm, initial encounter; Translations: [Strain of musc/fasc/tend at shldr/up arm, right arm, init] Episodic Unclassified (1 source) PERSONAL HISTORY OF COVID-19; Translations: [PERSONAL HISTORY OF COVID-19] Onset: 07-06-2022 Unclassified (3 sources) CONTACT W/AND (SUSP) EXPOS COVID-19; Translations: [CONTACT W/AND (SUSP) EXPOS COVID-19] Onset: 05-01-2022 Past or Other Problems Problem Classification Problem Date Documented Da te Episodic/Chronic Abdominal pain (1 source) Generalized abdominal pain; Translations: [Generalized abdominal pain] Onset: 08-04-2018 Episodic Allergic reactions (2 sources) Contact dermatitis; Translations: [Contact dermatitis and other eczema, due to unspecified cause] Onset: 03-07-2015 Episodic Nonmalignant breast conditions (1 source) Breast lump; Translations: [Unspecified lump in unspecified breast] Onset: 06-18-2014 Episodic Nonspecific chest pain (1 source) Chest pain; Translations: [Chest pain, unspecified] Onset: 03-17-2016 Episodic Other aftercare (1 source) 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; Translations: [TOUR 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 CURRENT USE OF ASPIRIN] Onset: 07-06-2022 Episodic Other lower respiratory disease (1 source) Disorder of lung; Translations: [Other diseases of lung, not elsewhere classified] Onset: 05-05-2018 Episodic Other non-traumatic joint disorders (1 source) Arthralgia of the lower leg; Translations: [Pain in joint, lower leg] Onset: 03-12-2016 Episodic Other non-traumatic joint disorders (1 source) Arthralgia of the pelvic region and thigh; Translations: [Pain in joint, pelvic region and thigh] Onset: 05-19-2018 Episodic Other nutritional; endocrine; and metabolic disorders (1 source) Body mass index (BMI) 28.0-28.9, adult; Translations: [BODY MASS INDEX BMI 28.0-28.9 ADULT] Onset: 07-06-2022 Episodic Other skin disorders (1 source) Disorder of pigmentation; Translations: [Disorder of pigmentation, unspecified] Onset: 09-07-2016 Episodic Other upper respiratory infections (1 source) Acute maxillary sinusitis; Translations: [Acute recurrent maxillary sinusitis] Onset: 07-12-2018 Episodic Pleurisy; pneumothorax; pulmonary collapse (1 source) Atelectasis; Translations: [Pulmonary collapse] Onset: 05-05-2018 Episodic Unclassified (1 source) CONTACT W/AND (SUSP) EXPOS COVID-19; Translations: [CONTACT W/AND (SUSP) EXPOS COVID-19] Onset: 04-28-2022 Results Test Name Value Interpretation Reference Range Facility MG MAMM RT DIAG [facility] 023 MG MAMM RT DIAG Patient: ROSALBA MEZA Exam Date: 10/14/2022 : 1950 Gender:F Ordering : DR CASSANDRA VALERO M.D. Admission #: [id number] Family : Order #: [id number] CLICK HERE TO VIEW EXAM RADIOLOGY REPORT [...] prostate cancer at age 68. LOCATION: [facility] BREAST COMPOSITION: Heterogeneously dense,which may obscure small [...] MD on 10/14/2022 at 11:37 Normal [facility] US BREAST RIGHT LIMITEDon US BREAST RIGHT LIMITED Patient: ROSALBA MEZA Exam Date: 10/14/2022 : 1950 Gender:F Ordering : DR CASSANDRA VALERO M.D. Admission #: [id number] Family : Order #: [id number] CLICK HERE TO VIEW EXAM RADIOLOGY REPORT [...] prostate cancer at age 68. LOCATION: [facility] BREAST COMPOSITION: Heterogeneously dense,which may obscure small [...] MD on 10/14/2022 at 11:37 Normal [facility] MAMM SCREEN 3D MAUREEN CADon 09-28-2022 MG MAMM SCREEN 3D MAUREEN CAD Patient: ROSALBA MEZA Exam Date: 09/28/2022 : 1950 Gender:F Ordering : DR CASSANDRA VALERO M.D. Admission #: [id number] Family : Order #: [id number] CLICK HERE TO VIEW EXAM RADIOLOGY REPORT [...] prostate cancer at age 68. LOCATION: [facility] BREAST COMPOSITION: Heterogeneously dense,which may obscure small [...] M.D. on 09/29/2022 at 12:10 Normal [facility] Covid-19 PCR (CVDTBH)on SARS-CoV-2 (COVID-19) RNA OLINDA+probe Ql (Unsp spec) Not detected Normal NOT DETECTED [facility] Comment on above: Result Comment: This test is not yet approved or cleared by the [place] FDA. When there are no FDA-approved or cleared tests available, and other criteria are met, FDA can make tests available under an emergency access mechanism called an Emergency Use Authorization (EUA). The EUA for this test is supported by the Shaper Operator of Health and Human Service's (HHS's) declaration [...] consistent with SARS-CoV-2. Performed By: #### C VDTBH #### [facility] [address] [address] [address] Valentin Shin CBC AUTO DIFFon 03-06-2022 BASO # 0.1 103/ul Normal 0.0-0.1 [facility] Comment on above: Performed By: #### C BC #### [facility] [address] [place], [place] [address] Dr. Valentin Shin Basophils/100 WBC (Bld) 0.7 % Normal 0.2-2.0 [facility] Comment on above: Performed By: #### C BC #### [facility] [address] [place] [address] Dr. Valentin Shin EO # 0.1 103/ul Normal 0.0-0.7 [facility] Comment on above: Performed By: #### C BC #### [facility] [address] [place] [address] Dr. Valentin Shin Eosinophils/100 WBC (Bld) 2.0 % Normal 0.9-7.0 [facility] Comment on above: Performed By: #### C BC #### [facility] [address] [place] [address] Dr. Valentin Shin Erythrocyte distribution width (RBC) [Ratio] 12.4 % Normal 11.0-15.0 [facility] Comment on above: Performed By: #### C BC #### [facility] [address] [place] [address] Dr. Valentin Shin Hematocrit (Bld) [Volume fraction] 38.9 % Normal 36.0-48.0 [facility] Comment on above: Performed By: #### C BC #### [facility] [address] [place] [address] Dr. Valentin Shin Hemoglobin (Bld) [Mass/Vol] 12.9 g/dL Normal 12.0-16.0 [facility] Comment on above: Performed By: #### C BC #### [facility] [address] [place] [address] Dr. Valentin Shin IG # 0.01 10e3/ul Normal 0.00-0.03 [facility] Comment on above: Performed By: #### C BC #### [facility] [address] [place] [address] Dr. Valentin Shin IG % 0.1 % Normal 0.0-0.5 [facility] Comment on above: Performed By: #### C BC #### [facility] [address] [place] [address] Dr. Valentin Shin LYMPH # 1.3 103/ul Normal 1.2-3.8 [facility] Comment on above: Performed By: #### C BC #### [facility] [address] [place] [address] Dr. Valentin Shin Lymphocytes/100 WBC (Bld) 18.2 % Critically low 20.5-60.0 [facility] Comment on above: Performed By: #### C BC #### [facility] [address] [place] [address] Dr. Valentin Shin MANUAL DIFF REQ NO Normal [facility] Comment on above: Performed By: #### C BC #### [facility] [address] [place] [address] Dr. Valentin Shin MCH (RBC) [Entitic mass] 30.1 pg Normal 26.7-34.0 [facility] Comment on above: Performed By: #### C BC #### [facility] [address] [place] [address] Dr. Valentin Shin MCHC (RBC) [Mass/Vol] 33.2 g/dL Normal 29.9-35.2 [facility] Comment on above: Performed By: #### C BC #### [facility] [address] [place] [address] Dr. Valentin Shin MCV (RBC) [Entitic vol] 90.7 fL Normal 81.0-99.0 [facility] Comment on above: Performed By: #### C BC #### [facility] [address] [place] [address] Dr. Valentin Shin MONO # 0.6 103/ul Normal 0.3-0.8 [facility] Comment on above: Performed By: #### C BC #### [facility] [address] [place] [address] Dr. Valentin Shin Monocytes/100 WBC (Bld) 8.4 % Normal 1.7-12.0 [facility] Comment on above: Performed By: #### C BC #### [facility] [address] [place] [address] Dr. Valentin Shin NEUT # 5.0 103/ul Normal 1.4-6.5 [facility] Comment on above: Performed By: #### C BC #### [facility] [address] [place] [address] Dr. Valentin Shin Neutrophils/100 WBC (Bld) 70.6 % Normal 43.0-75.0 [facility] Comment on above: Performed By: #### C BC #### [facility] [address] [place] [address] Dr. Valentin Shin Platelet mean volume (Bld) [Entitic vol] 9.9 fL Normal 9.5-13.5 [facility] Comment on above: Performed By: #### C BC #### [facility] [address] [place] [address] Dr. Valentin Shin PLT 202 103/ul Normal 150-450 [facility] Comment on above: Performed By: #### C BC #### [facility] [address] [place] [address] Dr. Valentin Shin RBC 4.29 106/ul Normal 4.20-5.40 [facility] Comment on above: Performed By: #### C BC #### [facility] [address] [place] [address] Dr. Valentin Shin WBC 7.0 103/ul Normal 4.0-11.0 [facility] Comment on above: Performed By: #### C BC #### [facility] [address] [place] [address] Dr. Valentin Shin LIPID PROFILEon 03-06-2022 CHOL-HDL RATIO NORM SEE BELOW Normal [facility] Comment on above: Result Comment: 3.3 - 4.4 LOW RISK 4.4 - 7.1 AVERAGE RISK 7.1 - 11.0 MODERATE RISK >11.0 HIGH RISK Performed By: #### L IPID, CMP #### [facility] [address] [place] [address] Dr. Valentin Shin Cholesterol [Mass/Vol] 177 mg/dL Normal <=200 [facility] Comment on above: Performed By: #### L IPID, CMP #### [facility] [address] [place] [address] Dr. Valentin Shin Cholesterol in HDL [Mass/Vol] 57 mg/dL Normal 40-60 [facility] Comment on above: Performed By: #### L IPID, CMP #### [facility] [address] [address] [address] Valentin Shin Cholesterol in LDL [Mass/Vol] 101.0 mg/dL Normal [facility] Comment on above: Performed By: #### L IPID, CMP #### [facility] [address] [address] [address] Valentin Shin Cholesterol.total/ Cholesterol in HDL [Mass ratio] 3.1 {ratio} Normal [facility] Comment on above: Performed By: #### L IPID, CMP #### [facility] [address] [address] [address] Valentin Shin HDL NORMAL > or = 60 mg/dl - LO W CARDIOVASCULAR RISK <40 mg/dl - HIGH CARDIOVASCULAR RISK Normal [facility] Comment on above: Performed By: #### L IPID, CMP #### [facility] [address] [address] [address] Valentin Shin LDL CALC NORMAL SEE BELOW Normal [facility] Comment on above: Result Comment: <100 mg/dl OPTIMAL 100 - 129 mg/dl NEAR OR ABOVE OPTIMAL 130 - 159 mg/dl BORDERLINE HIGH 160 - 189 mg/dl HIGH >190 mg/dl VERY HIGH Performed By: #### L IPID, CMP #### [facility] [address] [address] [address] Valentin Shin Triglyceride [Mass/Vol] 95 mg/dL Normal <=150 [facility] Comment on above: Performed By: #### L IPID, CMP #### [facility] [address] [address] [address] Valentin Shin VLDL CALC 19.0 mg/dL Normal [facility] Comment on above: Performed By: #### L IPID, CMP #### [facility] [address] [address] [address] Valentin Shin PROF 14(COMP METB)on 022 Albumin [Mass/Vol] 3.7 g/dL Normal 3.4-5.0 [facility] Comment on above: Performed By: #### L IPID, CMP #### [facility] [address] [address] [address] Valentin Shin Albumin/Globulin [Mass ratio] 1.0 {ratio} Normal [facility] Comment on above: Performed By: #### L IPID, CMP #### [facility] [address] [address] [address] Valentin Shin ALP [Catalytic activity/Vol] 93 U/L Normal 46-116 [facility] Comment on above: Performed By: #### L IPID, CMP #### [facility] [address] [address] [address] Valentin Shin ALT [Catalytic activity/Vol] 20 U/L Normal 14-59 [facility] Comment on above: Performed By: #### L IPID, CMP #### [facility] [address] [address] [address] Valentin Shin Anion gap [Moles/Vol] 10.2 mmol/L Normal [facility] Comment on above: Performed By: #### L IPID, CMP #### [facility] [address] [address] [address] Valentin Shin AST [Catalytic activity/Vol] 17 U/L Normal 15-37 [facility] Comment on above: Performed By: #### L IPID, CMP #### [facility] [address] [address] [address] Valentin Shin Bilirubin [Mass/Vol] 0.6 mg/dL Normal 0.2-1.0 [facility] Comment on above: Performed By: #### L IPID, CMP #### [facility] [address] [address] [address] Valentin Shin Calcium [Mass/Vol] 9.8 mg/dL Normal 8.5-10.1 [facility] Comment on above: Performed By: #### L IPID, CMP #### [facility] [address] [address] [address] Valentin Shin Chloride [Moles/Vol] 107 mmol/L Normal 98-107 [facility] Comment on above: Performed By: #### L IPID, CMP #### [facility] [address] [address] [address] Valentin Shin CO2 [Moles/Vol] 28.9 mmol/L Normal 21.0-32.0 [facility] Comment on above: Performed By: #### L IPID, CMP #### [facility] [address] [address] [address] Valentin Shin Creatinine [Mass/Vol] 0.88 mg/dL Normal 0.55-1.02 [facility] Comment on above: Performed By: #### L IPID, CMP #### [facility] [address] [address] [address] Valentin Shin EGFR-AF THAI >60 Normal >=60 [facility] Comment on above: Performed By: #### L IPID, CMP #### [facility] [address] [place] [address] Dr. Valentin Shin EGFR-NON AF THAI >60 Normal >=60 [facility] Comment on above: Performed By: #### L IPID, CMP #### [facility] [address] [address] [address] Valentin Shin Globulin (S) [Mass/Vol] 3.6 g/dL Normal [facility] Comment on above: Performed By: #### L IPID, CMP #### [facility] [address] [place] [address] Dr. Valentin Shin Glucose [Mass/Vol] 102 mg/dL Normal 74-106 [facility] Comment on above: Performed By: #### L IPID, CMP #### [facility] [address] [address] [address] Valentin Shin Potassium [Moles/Vol] 4.1 mmol/L Normal 3.5-5.1 [facility] Comment on above: Performed By: #### L IPID, CMP #### [facility] [address] [address] [address] Valentin Shin Protein [Mass/Vol] 7.3 g/dL Normal 6.4-8.2 [facility] Comment on above: Performed By: #### L IPID, CMP #### [facility] [address] [place], [place] [address] Dr. Valentin Shin Sodium [Moles/Vol] 142 mmol/L Normal 136-145 [facility] Comment on above: Performed By: #### L IPID, CMP #### [facility] [address] [place], [place] [address] Dr. Valentin Shin Urea nitrogen [Mass/Vol] 17.0 mg/dL Normal 7.0-18.0 [facility] Comment on above: Performed By: #### L IPID, CMP #### [facility] [address] [place], [place] [address] Dr. Valentin Shin Urea nitrogen/Creatinin e [Mass ratio] 19.3 mg/mg Normal [facility] Comment on above: Performed By: #### L IPID, CMP #### [facility] [address] [place] [address] [address] Valentin Shin OVER READ - NCon 04-20-2018 OVER READ - NC DATE OF EXAM: Apr 20 2018 1:16PMCLINICAL HISTORY/ Name: ANASTACIO MEZA:OVER READ - NC; 04/20/2018 1:16 pmINDICATION:score.LEIDY SALINAS:None. ERMATTHEW CLINICIAN:MARCELINO TURKQUE:The following is to serve as an over-read [...] performed in 6 months.Small hiatal hernia. Normal [facility] Healthcare Vital Signs Date Time Vital Sign Value Performing Clinician Alina milton 02-29-2024 11: Body height 156.21 cm [facility] 02-29-2024 11: Body mass index (BMI) [Ratio] 28.8 kg/m2 [facility] 02-29-2024 11: Body weight 70.3 kg [facility] 02-29-2024 11:040 Diastolic blood pressure 79 mm[Hg] [facility] 02-29-2024 11: Heart rate 73 /min [facility] 02-29-2024 11: Systolic blood pressure 127 mm[Hg] [facility] Encounters Encounter Date Encounter Type Care Provider Facility Start: 02-29-2024 End: 02-29-2024 ambulatory [facility] Work Phone: Start: 02-29-2024 End: 02-29-2024 Patient encounter procedure [facility] Physician [facility] Work Phone: Start: 01-04-2024 Non-patient / Non-visit [facility] Physician [facility] [employer] Work Phone: Start: 10-28-2023 End: 10-28-2023 ambulatory Cassandra Valero Other [employer] Other Start: 10-28-2023 Telephone encounter Cassandra Valero [facility] Start: 10-14-2022 End: 10-15-[address] CASSANDRA VALERO Facility:[facility]1 Start: 09-28-2022 End: 09-29-[address] CASSANDRA VALERO Facility:[facility] Start: 09-01-2022 End: 09-09-[address] CASSANDRA VALERO Facility:[facility] Start: 08-19-2022 End: 08-20-[address] CASSANDRA VALERO Facility:[facility] Start: 08-17-2022 Adult health examination Cassandra Valero Other [employer] Other Start: 07-01-2022 End: 07-01-[address] KEVIN MARTI Facility:[facility] Start: 06-27-[address] KEVIN MARTI Fa cility:[facility]1 Start: 04-28-2022 End: 04-29-[address] CASSANDRA VALERO Facility:[facility] Start: 03-10-2022 Encounter for genera l adult medical examination without abnormal findings DR CASSANDRA VALERO [facility] Start: 03-06-2022 End: 03-07-[address] CASSANDRA VALERO Facility:[facility] Start: 03-06-2022 End: 03-07-2022 Encounter for general adult medical examination without abnormal findings DR CASSANDRA VALERO Facility:[facility] Start: 04-20-2018 Patient encounter MARCELINO MCPHERSON Fa cility:[id number] Start: 04-20-2018 Patient encounter Facil ity:[id number] Procedures Date Procedure Procedure Detail Performing Clinician Start: 06-14-2015 Screening mammography M melissajennifer Valero Other General examination of patient Cassandra Valero Other Screening for malign ant neoplasm of breast Cassandra Valero Other Plan of Treatment Date Care Activity Detail Author DXA Skeletal system. axial Views for bone density [facility] enter Immunizations Immunization Date Immunization Notes Care Provider Fa cility 07-31-2022 COVID-19 Pfizer (Pediatric) Cassandra Valero Other [facility] 07-07-2022 influenza virus vaccine, split virus (incl. purified surface antigen) Cassandra Valero Other [employer] [facility] [employer] Other 07-07-2022 influenza virus vaccine, unspecified formulation [facility] 03-23-2022 COVID-19 Vaccine Pfi zer - Documentation Purposes Only Cassandra Valero Other [facility] 08-01-2021 influenza virus vaccine, split virus (incl. purified surface antigen) Cassandra Valero Other [employer] [facility] [employer] Other 08-01-2021 influenza virus vaccine, unspecified formulation [facility] 06-23-2021 COVID-19 Vaccine Pfi zer - Documentation Purposes Only Cassandra Valero Other [facility] 06-22-2020 influenza virus vaccine, split virus (incl. purified surface antigen) Cassandra Valero Other [employer] Other 06-22-2020 influenza virus vaccine, unspecified formulation [facility] 08-04-2017 influenza virus vaccine, split virus (incl. purified surface antigen) Cassandra Valero Other [employer] Other 08-04-2017 influenza virus vaccine, unspecified formulation [facility] 08-07-2016 influenza virus vaccine, split virus (incl. purified surface antigen) Cassandra Valero Other [employer] Other 08-07-2016 influenza virus vaccine, unspecified formulation [facility] 03-06-2016 pneumococcal conjuga te vaccine, 13 valent Cassandra Valero Other [facility] 03-06-2016 pneumococcal Conjuga te, unspecified formulation; Translations: [Need for prophylactic vaccination against Streptococcus pneumoniae (pneumococcus)] Cassandra Valero Other [facility] [employer] Other 08-27-2015 influenza virus vaccine, split virus (incl. purified surface antigen) Cassandra Valero Other [facility] [employer] Other 08-27-2015 influenza virus vaccine, unspecified formulation [facility] 07-03-2014 tetanus and diphther ia toxoids, adsorbed, preservative free, for adult use (5 Lf of tetanus toxoid and 2 Lf of diphtheria toxoid) Cassandra Valero Other [facility] 07-18-2013 tetanus and diphther ia toxoids, adsorbed, preservative free, for adult use (5 Lf of tetanus toxoid and 2 Lf of diphtheria toxoid) Cassandra Valero Other [facility] Payers Date Payer Category Payer Medicare [id number] 1961 Unknown [id number] 1950 Unknown [id number] 2.16.84 [id number] 1950 Unknown [id number] 2.16.84 [id number] 1950 Unknown [id number] 2.16.84 [id number] 1948 Unknown [id number] 2.16.84 [id number] 1948 Unknown [id number] 2.16.84 [id number] 1948 Unknown [id number] 2.16.84 [id number] 1948 Unknown [id number] 2.16.84 [id number] 1950 Unknown [id number] 2.16.84 [id number] Medicare Medicare [id number] Unknown ROSALBA MEZA Social History Date Type Detail Facility Unknown if ever smoked [employer] Other Sex Assigned At Sex Assigned At Bir th [employer] Other Start: 1950 Sex Assigned At Female F [facility] Clinical Note 08-20-2022 Note Date & Type [...] authenticated by: JANES MORFIN Date: 2022-08-19 23:15 [facility] Evaluation note Note Date & Type Note Facility Evaluation note No Information [employer] Other Evaluation note Note Date & Type Note Facility Evaluation note Diagnosis Onset Date Menopause acute [facility] Work Phone: History general Narrative - Reported Note Date & Type Note Facility History general Narrative - Reported Type Surgical History Problem Title : appe ndectomy, history of, Problem Description : appendectomy, history of, Problem Comment : yes, Problem Status : Active, Surgical History Problem Title : past surgical history reviewed, Problem Description : past surgical history reviewed, Problem Comment : reviewed - no changes required, Problem Status : Active, Surgical History Problem Title : surg ical procedures, hx of, Problem Description : surgical procedures, hx of, Problem Comment : Basal cell cancer s/p Mohs R breast stereotactic biopsy 2006 L knee arthroscopic surgery - 2000 - [facility], Problem Status : Active, Surgical History Problem Title : surg ical procedures, hx of, Problem Description : surgical procedures, hx of, Problem Comment : Basal cell cancer s/p Mohs R breast stereotactic biopsy 2006, Problem Status : Active, Surgical History 1: Problem Title : s urgical procedures, hx of, Problem Description : surgical procedures, hx of, Problem Comment : Basal cell cancer s/p Mohs R breast stereotactic biopsy 2006 L knee arthroscopic surgery - 2000 - [facility] Appendectomy , Problem Surgical History 2: Status : Active, Surgical History 1: Problem Title : s urgical procedures, hx of, Problem Description : surgical procedures, hx of, Problem Comment : Basal cell cancer s/p Mohs R breast stereotactic biopsy 2006 L knee arthroscopic surgery - 2000 - [facility] Appendectomy Normal Surgical History 2: colonoscopy/EGD - Dr. Marti, Problem Status : Active, [employer] Other Summary Purpose Family History Relationship Condition Age at Onset Recorded Date/T samira brother Malignant neoplasm Unknown father Unknown Not Specified Unknown Diabetes mellitus Unknown Heart disease Unknown sister History of stroke Unknown Malignant neoplasm Unknown Hypertension Unknown Advance Directives Advance Directive Response Recorded Date/ Time Advance Directives No February 28 11:00am Chief Complaint and Reason for Visit Chief Complaint Amb Documentation stomach issues Reason for Visit Menopause Additional Source Comments INFORMATION SOURCE (unrecogn ized section and content) DATE CREATED AUTHOR 04/21/2018 [facility] DATE CREATED AUTHOR AUTHOR'S ORGANIZ ATION 04/21/2018 [facility] DATE CREATED AUTHOR AUTHOR'S ORGANIZ ATION 10/15/2022 [facility] REASON FOR VISIT (unrecogniz ed section and content) Refill Care Teams (unrecognized sec tion and content) Team Status: Active Member Role Status Dates Cassandra Valero MD Primary Care Provider Active Team Status: Active Member Role Status Dates Cassandra Valero MD Primary Care Provider Active Start: January 04, 2024 DARYL Copeland Attending Provider Active Start : January 04, 2024 Team Status: Inactive Member Role Status Dates Cassandra Valero MD Primary Care Provide r, Attending Provider Active Start: February 29, 2024 End: February 29, 2024 Goals (unrecognized section and content) Goals may be documented in a n alternate section FOR RECORDS PERTAINING TO PATIENTS WHO ARE [...] BE BASED ON THE PRIMARY CLINICAL RECORDS. [employer] provides no warranty or guarantee of the accuracy or completeness of information in this document.
== END 2024-03-07 06:02 | disposition home or self-care (01) ==
PROVIDERS: Emergency Provider Emergency Medicine; PCP Family Medicine
DX: M43.6 Torticollis (principal)
CPT/HCPCS: 72125; 96372; 99284; J1885; J2360

== ENCOUNTER 2024-04-03 08:01 | Outpatient (OUT) | payer MEDICARE, OTHER, SELFPAY ==
--- OUTSIDE RECORDS SUMMARY | 2024-04-03 08:11 | XMS_ITS | CCD ---
Author Organization [facility] Care Team Providers Care Extension Educator Name Role Phone MARCELINO MCPHERSON Unavailable Unavailable [place], MARCELINO Beltran Unavailable Unavailable VALERO, CASSANDRA Unavailable Unavailable VALERO, DR CASSANDRA Beltran Admitting Unavailable VALERO, DR CASSANDRA Beltran Attending Unavailable VALERO, DR CASSANDRA Beltran Primary Care Unavailable Zieber, DR Marrero Consulting Unavailable VALERO, DR CASSANDRA Beltran Consulting Unavailable VALERO, DR CASSANDRA Beltran Admitting Unavailable VALERO, DR CASSANDRA Beltran Attending Unavailable VALERO, DR CASSANDRA Beltran Primary Care Unavailable BRICE, DR ALYSON Pisano Consulting Unavailable VALERO, DR [...] VALERO, DR CASSANDRA Beltran Primary Care Unavailable GRILLIArsenio, DR KEVIN Beltran Admitting Unavailabl e GRILLIS, [...] 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 Propensity to adverse reactions 9 Comment:Done [employer] Other (1 source) Allergies Reconciled Propensity to adverse reactions Unknown [facility] Other Medications Current Medications Medication Drug Class(es) [...] Onset: 03-17-2016 Episodic Other aftercare (1 source) 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 Admission #: [id number] Family : Order #: [id number] CLICK HERE TO VIEW EXAM RADIOLOGY REPORT [...] prostate cancer at age 68. LOCATION: [facility] BREAST COMPOSITION: Heterogeneously dense,which may obscure small [...] MD on 10/14/2022 at 11:37 Normal [facility] US BREAST RIGHT LIMITEDon US BREAST RIGHT LIMITED Patient: ROSALBA MEZA Exam Date: 10/14/2022 : 1950 Gender:F Ordering : DR CASSANDRA VALERO M.D. Admission #: [id number] Family : Order #: [id number] CLICK HERE TO VIEW EXAM RADIOLOGY REPORT [...] prostate cancer at age 68. LOCATION: [facility] BREAST COMPOSITION: Heterogeneously dense,which may obscure small [...] MD on 10/14/2022 at 11:37 Normal [facility] MAMM SCREEN 3D MAUREEN CADon 09-28-2022 MAMM SCREEN 3D MAUREEN CAD Patient: ROSALBA MEZA Exam Date: 09/28/2022 : 1950 Gender:F Ordering : DR CASSANDRA VALERO M.D. Admission #: [id number] Family : Order #: [id number] CLICK HERE TO VIEW EXAM RADIOLOGY REPORT PROCEDURE: MAMMOGRAM SCREENING 3D BILATERAL CAD COMPARISON: MAMM SCREEN MAUREEN W CAD, 09/12/2020. MAMMO POST BIOPSY LEFT, 09/24/2021. MAMM SCREEN 3D MAUREEN CAD, 09/15/2021. INDICATIONS: Screening mammography Calculator Name NCI Breast Cancer Risk Assessment Tool 5 Year Breast Cancer Risk 5.30% Lifetime Breast Cancer Risk 11.90% Personal Breast Cancer No Personal Ovarian Cancer No Treatments Excision Family Cancers Sister with breast cancer at age 61; Brother with throat cancer at age 60; Brother with prostate cancer at age 70. LOCATION: [facility] BREAST COMPOSITION: Heterogeneously dense,which may obscure small [...] M.D. on 09/29/2022 at 12:10 Normal [facility] Covid-19 PCR (CVDTBH)on SARS-CoV-2 (COVID-19) RNA OLINDA+probe Ql (Unsp spec) Not detected Normal NOT DETECTED [facility] Comment on above: Result Comment: This test is not yet approved or cleared by the [place] FDA. When there are no FDA-approved or cleared tests available, and other criteria are met, FDA can make tests available under an emergency access mechanism called an Emergency Use Authorization (EUA). The EUA for this test is supported by the [place] of Health and Human Service's (HHS's) declaration [...] SARS-CoV-2. Performed By: #### C VDTBH #### [facility] [address] [place] [address] Dr. Valentin Shin CBC AUTO DIFFon 03-06-2022 BASO # 0.1 103/ul Normal 0.0-0.1 [facility] Comment on above: Performed By: #### C BC #### [facility] [address] [place] [address] Dr. Valentin Shin Basophils/100 WBC (Bld) 0.7 % Normal 0.2-2.0 [facility] Comment on above: Performed By: #### C BC #### [facility] [address] [place] [address] Dr. Valentin Shin EO # 0.1 103/ul Normal 0.0-0.7 [facility] Comment on above: Performed By: #### C BC #### [facility] [address] [place] [address] Dr. Valentin Shin Eosinophils/100 WBC (Bld) 2.0 % Normal 0.9-7.0 [facility] Comment on above: Performed By: #### C BC #### [facility] [address] [place] [address] Dr. Valentin Shin Erythrocyte distribution width (RBC) [Ratio] 12.4 % Normal 11.0-15.0 [facility] Comment on above: Performed By: #### C BC #### [facility] [address] [place] [address] Dr. Valentin Shin Hematocrit (Bld) [Volume fraction] 38.9 % Normal 36.0-48.0 [facility] Comment on above: Performed By: #### C BC #### [facility] [address] [place] [address] Dr. Valentin Shin Hemoglobin (Bld) [Mass/Vol] 12.9 g/dL Normal 12.0-16.0 [facility] Comment on above: Performed By: #### C BC #### [facility] [address] [place] [address] Dr. Valentin Shin IG # 0.01 10e3/ul Normal 0.00-0.03 [facility] Comment on above: Performed By: #### C BC #### [facility] [address] [place] [address] Dr. Valentin Shin IG % 0.1 % Normal 0.0-0.5 [facility] Comment on above: Performed By: #### C BC #### [facility] [address] [place] [address] Dr. Valentin Shin LYMPH # 1.3 103/ul Normal 1.2-3.8 [facility] Comment on above: Performed By: #### C BC #### [facility] [address] [place] [address] Dr. Valentin Shin Lymphocytes/100 WBC (Bld) 18.2 % Critically low 20.5-60.0 [facility] Comment on above: Performed By: #### C BC #### [facility] [address] [address] [address] Valentin Shin MANUAL DIFF REQ NO Normal [facility] Comment on above: Performed By: #### C BC #### [facility] [address] [place] [address] Dr. Valentin Shin MCH (RBC) [Entitic mass] 30.1 pg Normal 26.7-34.0 [facility] Comment on above: Performed By: #### C BC #### [facility] [address] [place] [address] Dr. Valentin Shin MCHC (RBC) [Mass/Vol] 33.2 g/dL Normal 29.9-35.2 [facility] Comment on above: Performed By: #### C BC #### [facility] [address] [place] [address] Dr. Valentin Shin MCV (RBC) [Entitic vol] 90.7 fL Normal 81.0-99.0 [facility] Comment on above: Performed By: #### C BC #### [facility] [address] [place] [address] Dr. Valentin Shin MONO # 0.6 103/ul Normal 0.3-0.8 [facility] Comment on above: Performed By: #### C BC #### [facility] [address] [place] [address] Dr. Valentin Shin Monocytes/100 WBC (Bld) 8.4 % Normal 1.7-12.0 [facility] Comment on above: Performed By: #### C BC #### [facility] [address] [place] [address] Dr. Valentin Shin NEUT # 5.0 103/ul Normal 1.4-6.5 [facility] Comment on above: Performed By: #### C BC #### [facility] [address] [place] [address] Dr. Valentin Shin Neutrophils/100 WBC (Bld) 70.6 % Normal 43.0-75.0 [facility] Comment on above: Performed By: #### C BC #### [facility] [address] [place] [address] Dr. Valentin Shin Platelet mean volume (Bld) [Entitic vol] 9.9 fL Normal 9.5-13.5 [facility] Comment on above: Performed By: #### C BC #### [facility] [address] [place] [address] Dr. Valentin Shin PLT 202 103/ul Normal 150-450 [facility] Comment on above: Performed By: #### C BC #### [facility] [address] [place] [address] Dr. Valentin Shin RBC 4.29 106/ul Normal 4.20-5.40 [facility] Comment on above: Performed By: #### C BC #### [facility] [address] [place] [address] Dr. Valentin Shin WBC 7.0 103/ul Normal 4.0-11.0 [facility] Comment on above: Performed By: #### C BC #### [facility] [address] [place] [address] Dr. Valentin Shin LIPID PROFILEon 03-06-2022 CHOL-HDL RATIO NORM SEE BELOW Normal [facility] Comment on above: Result Comment: 3.3 - 4.4 LOW RISK 4.4 - 7.1 AVERAGE RISK 7.1 - 11.0 MODERATE RISK >11.0 HIGH RISK Performed By: #### L IPID, CMP #### [facility] [address] [place] [address] Dr. Valentin Shin Cholesterol [Mass/Vol] 177 mg/dL Normal <=200 [facility] Comment on above: Performed By: #### L IPID, CMP #### [facility] [address] [place] [address] Dr. Valentin Shin Cholesterol in HDL [Mass/Vol] 57 mg/dL Normal 40-60 [facility] Comment on above: Performed By: #### L IPID, CMP #### [facility] [address] [address] [address] Valentin Shin Cholesterol in LDL [Mass/Vol] 101.0 mg/dL Normal [facility] Comment on above: Performed By: #### L IPID, CMP #### [facility] [address] [place] [address] Dr. Valentin Shin Cholesterol.total/ Cholesterol in HDL [Mass ratio] 3.1 {ratio} Normal [facility] Comment on above: Performed By: #### L IPID, CMP #### [facility] [address] [place] [address] Dr. Valentin Shin HDL NORMAL > or = 60 mg/dl - LO W CARDIOVASCULAR RISK <40 mg/dl - HIGH CARDIOVASCULAR RISK Normal [facility] Comment on above: Performed By: #### L IPID, CMP #### [facility] [address] [place] [address] Dr. Valentin Shin LDL CALC NORMAL SEE BELOW Normal [facility] Comment on above: Result Comment: <100 mg/dl OPTIMAL 100 - 129 mg/dl NEAR OR ABOVE OPTIMAL 130 - 159 mg/dl BORDERLINE HIGH 160 - 189 mg/dl HIGH >190 mg/dl VERY HIGH Performed By: #### L IPID, CMP #### [facility] [address] [place] [address] Dr. Valentin Shin Triglyceride [Mass/Vol] 95 mg/dL Normal <=150 [facility] Comment on above: Performed By: #### L IPID, CMP #### [facility] [address] [place] [address] Dr. Valentin Shin VLDL CALC 19.0 mg/dL Normal [facility] Comment on above: Performed By: #### L IPID, CMP #### [facility] [address] [place] [address] Dr. Valentin Shin PROF 14(COMP METB)on 022 Albumin [Mass/Vol] 3.7 g/dL Normal 3.4-5.0 [facility] Comment on above: Performed By: #### L IPID, CMP #### [facility] [address] [address] [address] Valentin Shin Albumin/Globulin [Mass ratio] 1.0 {ratio} Normal [facility] Comment on above: Performed By: #### L IPID, CMP #### [facility] [address] [address] [address] Valentin Shin ALP [Catalytic activity/Vol] 93 U/L Normal 46-116 [facility] Comment on above: Performed By: #### L IPID, CMP #### [facility] [address] [address] [address] Valentin Shin ALT [Catalytic activity/Vol] 20 U/L Normal 14-59 [facility] Comment on above: Performed By: #### L IPID, CMP #### [facility] [address] [place] [address] Dr. Valentin Shin Anion gap [Moles/Vol] 10.2 mmol/L Normal [facility] Comment on above: Performed By: #### L IPID, CMP #### [facility] [address] [place] [address] Dr. Valentin Shin AST [Catalytic activity/Vol] 17 U/L Normal 15-37 [facility] Comment on above: Performed By: #### L IPID, CMP #### [facility] [address] [place] [address] Dr. Valentin Shin Bilirubin [Mass/Vol] 0.6 mg/dL Normal 0.2-1.0 [facility] Comment on above: Performed By: #### L IPID, CMP #### [facility] [address] [place] [address] Dr. Valentin Shin Calcium [Mass/Vol] 9.8 mg/dL Normal 8.5-10.1 [facility] Comment on above: Performed By: #### L IPID, CMP #### [facility] [address] [address] [address] Valentin Shin Chloride [Moles/Vol] 107 mmol/L Normal 98-107 [facility] Comment on above: Performed By: #### L IPID, CMP #### [facility] [address] [address] [address] Valentin Shin CO2 [Moles/Vol] 28.9 mmol/L Normal 21.0-32.0 [facility] Comment on above: Performed By: #### L IPID, CMP #### [facility] [address] [address] [address] Valentin Shin Creatinine [Mass/Vol] 0.88 mg/dL Normal 0.55-1.02 [facility] Comment on above: Performed By: #### L IPID, CMP #### [facility] [address] [address] [address] Valentin Shin EGFR-AF SYRIAN >60 Normal >=60 [facility] Comment on above: Performed By: #### L IPID, CMP #### [facility] [address] [address] [address] Valentin Shin EGFR-NON AF SYRIAN >60 Normal >=60 [facility] Comment on above: Performed By: #### L IPID, CMP #### [facility] [address] [address] [address] Valentin Shin Globulin (S) [Mass/Vol] 3.6 g/dL Normal [facility] Comment on above: Performed By: #### L IPID, CMP #### [facility] [address] [address] [address] Valentin Shin Glucose [Mass/Vol] 102 mg/dL Normal 74-106 [facility] Comment on above: Performed By: #### L IPID, CMP #### [facility] [address] [address] [address] Valentin Shin Potassium [Moles/Vol] 4.1 mmol/L Normal 3.5-5.1 [facility] Comment on above: Performed By: #### L IPID, CMP #### [facility] [address] [address] [address] Valentin Shin Protein [Mass/Vol] 7.3 g/dL Normal 6.4-8.2 [facility] Comment on above: Performed By: #### L IPID, CMP #### [facility] [address] [address] [address] Valentin Shin Sodium [Moles/Vol] 142 mmol/L Normal 136-145 [facility] Comment on above: Performed By: #### L IPID, CMP #### [facility] [address] [address] [address] Valentin Shin Urea nitrogen [Mass/Vol] 17.0 mg/dL Normal 7.0-18.0 [facility] Comment on above: Performed By: #### L IPID, CMP #### [facility] [address] [address] [address] Valentin Shin Urea nitrogen/Creatinin e [Mass ratio] 19.3 mg/mg Normal [facility] Comment on above: Performed By: #### L IPID, CMP #### [facility] [address] [address] [address] Valentin Shin OVER READ - NCon 04-20-2018 OVER READ - NC DATE OF EXAM: Apr 20 2018 1:16PMCLINICAL HISTORY/ Name: ANASTACIO MEZA:OVER READ - NC; 04/20/2018 1:16 pmINDICATION:score.LEIDY SALINAS:None. HUI CLINICIAN:MARCELINO ALVA:The following is to serve as [...] performed in 6 months.Small hiatal hernia. Normal [facility] Vital Signs Date Time Vital Sign Value Performing Clinician Alina milton 02-29-2024 11:11040 Body height 156.21 cm [facility] 02-29-2024 11:110400 Body mass index (BMI) [Ratio] 28.8 kg/m2 [facility] 02-29-2024 11:040 Body weight 70.3 kg [facility] 02-29-2024 11:11040 Diastolic blood pressure 79 mm[Hg] [facility] 02-29-2024 11:11040 Heart rate 73 /min [facility] 02-29-2024 11:110400 Systolic blood pressure 127 mm[Hg] [facility] Encounters Encounter Date Encounter Type Care Provider Facility Start: 02-29-2024 End: 02-29-2024 ambulatory [facility] Work Phone: Start: 02-29-2024 End: 02-29-2024 Patient encounter procedure [facility] Physician [facility] Work Phone: Start: 01-04-2024 Non-patient / Non-visit [facility] Physician [facility] [employer] Work Phone: Start: 10-28-2023 End: 10-28-2023 ambulatory Cassandra Valero Other [employer] Other Start: 10-28-2023 Telephone encounter Cassandra Valero [facility] Start: 10-14-2022 End: 10-15-[address] CASSANDRA VALERO Facility:[facility] Start: 09-28-2022 End: 09-29-[address] CASSANDRA VALERO Facility:[facility] Start: 09-01-2022 End: 09-09-[address] CASSANDRA VALERO Facility:[facility] Start: 08-19-2022 End: 08-20-[address] CASSANDRA VALERO Facility:[facility] Start: 08-17-2022 Adult health examination Cassandra Valero Other [employer] Other Start: 07-01-2022 End: 07-01-[address] KEVIN MARTI Facility:[facility] Start: 06-27-[address] KEVIN MARTI Fa cility:[facility]1 Start: 04-28-2022 End: 04-29-[address] CASSANDRA VALERO Facility:[facility] Start: 03-10-2022 Encounter for genera l adult medical examination without abnormal findings DR CASSANDRA VALERO [facility] Start: 03-06-2022 End: 03-07-[address] CASSANDRA VALERO Facility:[facility] Start: 03-06-2022 End: 03-07-2022 Encounter for general adult medical examination without abnormal findings DR CASSANDRA VALERO Facility:[facility] Start: 04-20-2018 Patient encounter MARCELINO MCPHERSON Fa cility:[id number] Start: 04-20-2018 Patient encounter Facil ity:[id number] Procedures Date Procedure Procedure Detail Performing Clinician Start: 06-14-2015 Screening mammography Teddy melissa Valero Other General examination of patient Cassandra Valero Other Screening for malign ant neoplasm of breast Cassandra Valero Other Plan of Treatment Date Care Activity Detail Author DXA Skeletal system. axial Views for bone density [facility] enter Immunizations Immunization Date Immunization Notes Care Provider Fa cility 07-31-2022 COVID-19 Pfizer (Pediatric) Cassandra Valero Other [facility] 07-07-2022 influenza virus vaccine, split virus (incl. purified surface antigen) Cassandra Valero Other [employer] Other 07-07-2022 influenza virus vaccine, unspecified formulation [facility] 03-23-2022 COVID-19 Vaccine Pfi zer - Documentation Purposes Only Cassandra Valero Other [facility] 08-01-2021 influenza virus vaccine, split virus (incl. purified surface antigen) Cassandra Valero Other [facility] Other 08-01-2021 influenza virus vaccine, unspecified formulation [facility] 06-23-2021 COVID-19 Vaccine Pfi zer - Documentation Purposes Only Cassandra Valero Other [facility] 06-22-2020 influenza virus vaccine, split virus (incl. purified surface antigen) Cassandra Valero Other [facility] Other 06-22-2020 influenza virus vaccine, unspecified formulation [facility] 08-04-2017 influenza virus vaccine, split virus (incl. purified surface antigen) Cassandra Valero Other [facility] Other 08-04-2017 influenza virus vaccine, unspecified formulation [facility] 08-07-2016 influenza virus vaccine, split virus (incl. purified surface antigen) Cassandra Valero Other [facility] Other 08-07-2016 influenza virus vaccine, unspecified formulation [facility] 03-06-2016 pneumococcal conjuga te vaccine, 13 valent Cassandra Valero Other [facility] 03-06-2016 pneumococcal Conjuga te, unspecified formulation; Translations: [Need for prophylactic vaccination against Streptococcus pneumoniae (pneumococcus)] Cassandra Valero Other [facility] Other 08-27-2015 influenza virus vaccine, split virus (incl. purified surface antigen) Cassandra Valero Other [facility] Other 08-27-2015 influenza virus vaccine, unspecified formulation [facility] 07-03-2014 tetanus and diphther ia toxoids, adsorbed, preservative free, for adult use (5 Lf of tetanus toxoid and 2 Lf of diphtheria toxoid) Cassandra Valero Other [facility] 07-18-2013 tetanus and diphther ia toxoids, adsorbed, preservative free, for adult use (5 Lf of tetanus toxoid and 2 Lf of diphtheria toxoid) Cassandra Valero Other [facility] Payers Date Payer Category Payer Medicare [id number] 1961 Unknown [id number] 1950 Unknown [id number] 2.16.84 [id number] 1950 Unknown [id number] 2.16.84 [id number] 1950 Unknown [id number] 2.16.84 [id number] 1950 Unknown [id number] 2.16.84 [id number] 1950 Unknown [id number] 2.16.84 [id number] 1950 Unknown [id number] 2.16.84 [id number] 1950 Unknown [id number] 2.16.84 [id number] 1950 Unknown [id number] 2.16.84 [id number] Medicare Medicare [id number] Unknown ROSALBA MEZA Social History Date Type Detail Facility Unknown if ever smoked [employer] Other Sex Assigned At Sex Assigned At Bir th [employer] Other Start: 1950 Sex Assigned At Female F [facility] Clinical Note 08-20-2022 Note Date & Type [...] authenticated by: JANES MORFIN Date: 2022-08-19 23:15 [facility] Evaluation note Note Date & Type Note Facility Evaluation note No Information [employer] Other Evaluation note Note Date & Type Note Facility Evaluation note Diagnosis Onset Date Menopause acute [facility] Work Phone: History general Narrative - Reported [...] cancer s/p Mohs R breast stereotactic biopsy 2007 L knee arthroscopic surgery - 2000 - [...] - Dr. Marti, Problem Status : Active, [employer] Other Summary Purpose Family History Relationship Condition [...] section and content) DATE CREATED AUTHOR 04/21/2018 [facility] DATE CREATED AUTHOR AUTHOR'S ORGANIZ ATION 04/21/2018 [facility] DATE CREATED AUTHOR AUTHOR'S ORGANIZ ATION 10/15/2022 [facility] REASON FOR VISIT (unrecogniz ed [...] BE BASED ON THE PRIMARY CLINICAL RECORDS. [facility] [employer] [facility]. provides no warranty or guarantee of the accuracy or completeness of information in this document.
--- NOTE | 2024-04-03 08:13 | XR_ITS ---
The [address] [address] Patient Name: ALVARADO MEZA MRN: [id number] date: 1950 Sex: F Assigned Patient Location: [facility] Current Patient Location: [facility] Accession/Order Number: [id number] Exam Date: 04/03/2024 08:30 Report Date: 04/03/2024 09:04 At the request of: ANJU VALERO Procedure: XR DEXA axial skeleton EXAMINATION: XR DEXA axial skeleton, 04/03/2024 8:30 AM EDT HISTORY: Menopause Present COMPARISON: 2012, 2010, 2007, 2004. TECHNIQUE: Dual-energy X-ray absorptiometry (DEXA) bone density study performed for the axial skeleton. FINDINGS: Bone mineral density lumbar spine L1-L4 measures 1.164 g/sq cm. T score -0.1. Normal. Lowest bone mineral density left femoral neck measures 0.916 g/sq cm. T score -0.9. Normal XR/XR DEXA axial skeleton IMPRESSION: Normal bone mineral density Pharmacologic treatment recommendations * No uniform recommendation applies to all patients. Management plans must be individualized. * Consider initiating pharmacologic treatment in postmenopausal women and men >= 50 years of age who have the following: Primary fracture prevention: * T-score <= - 2.5 at the femoral neck, total hip, lumbar spine, 33% radius (some uncertainty with existing data) by DXA. * Low bone mass (osteopenia: T-score between - 1.0 and - 2.5) at the femoral neck or total hip by DXA with a 10-year hip fracture risk >= 3% or a 10-year major osteoporosis-related fracture risk >= 20% (i.e., clinical vertebral, hip, forearm, or proximal humerus) based on the [place]-adapted FRAXregistered model. Secondary fracture prevention: * Fracture of the hip or vertebra regardless of BMD [4, 5]. * Fracture of proximal humerus, pelvis, or distal forearm in persons with low bone mass (osteopenia: T-score between - 1.0 and - 2.5). The decision to treat should be individualized in persons with a fracture of the proximal humerus, pelvis, or distal forearm who do not have osteopenia or low BMD [12, 13]. Marco CANO, [place] JOSE, Milvia KL, Mikal EM, Nadya KG, AJ, Leah ES. The clinician's guide to prevention and treatment of osteoporosis. Osteoporos Int. 2021;33(10):9762-9458. doi: 10.1007/b23591-395-35648-p. Epub 2021Jan 22. Erratum in: Osteoporos Int. 2021Apr 23;: PMID: [id number]; PMCID: [id number]. Electronically authenticated by: ALYSON ELISE Date: 04/03/2024 09:04
[2024-04-03 09:14] LABS: Basophils Absolute Auto 0.1 10^3/uL (0.0-0.1); Basophils Percent Auto 0.8 % (0.2-2.0); Eosinophils Absolute Auto 0.4 10^3/uL (0.0-0.7); Eosinophils Percent Auto 4.4 % (0.9-7.0); Hematocrit 39.6 % (36.0-48.0); Immature Granulocytes Abs Auto 0.03 10^3/uL (0.00-0.03); Immature Granulocytes Pct Auto 0.4 % (0.0-0.5); Lymphocytes Absolute Auto 1.3 10^3/uL (1.2-3.8); Lymphocytes Percent Auto 15.7 % (20.5-60.0); Mean Corpuscular HGB Conc 32.8 g/dL (29.9-35.2); Mean Corpuscular Hemoglobin 29.9 pg (26.7-34.0); Mean Platelet Volume 10.3 fL (9.5-13.5); Monocytes Absolute Auto 0.6 10^3/uL (0.3-0.8); Neutrophils Absolute Auto 5.6 10^3/uL (1.4-6.5); Neutrophils Percent Auto 70.7 % (43.0-75.0); Platelet Count 221 10^3/uL (150-450); Red Blood Count 4.35 10^6/uL (4.20-5.40); Red Cell Distribution Width 11.9 % (11.0-15.0)
[2024-04-03 09:58] LABS: Microalbumin Urine Random 1.8 mg/dL (<=30.0)
[2024-04-03 10:55] LABS: Alanine Aminotransferase 20 U/L (14-59); Albumin Globulin Ratio 0.9; Albumin Level 3.5 g/dL (3.4-5.0); Alkaline Phosphatase 106 U/L (46-116); Anion Gap 12.5; Aspartate Amino Transferase 17 U/L (15-37); Bilirubin Total 0.6 mg/dL (0.2-1.0); Calcium 9.6 mg/dL (8.5-10.1); Carbon Dioxide 29.2 mmol/L (21.0-32.0); Chloride 106 mmol/L (98-107); Chol HDL Ratio 3.2; Cholesterol 186 mg/dL (<=200); Estimated GFR (African America >60 (>=60); Estimated GFR (Non-African Ame 58 (>=60); Globulin 3.9 g/dL; Glucose 102 mg/dL (74-106); HDL Cholesterol 58 mg/dL (40-60); LDL Cholesterol Calculated 112.4 mg/dL; Potassium 3.7 mmol/L (3.5-5.1); Sodium 144 mmol/L (136-145); Total Protein 7.4 g/dL (6.4-8.2); Triglycerides 78 mg/dL (<=150); VLDL CHOLESTEROL 15.6 mg/dL
== END 2024-04-03 08:02 | disposition home or self-care (01) ==
PROVIDERS: PCP Family Medicine; Visit Provider Family Medicine
DX: E78.5 Hyperlipidemia, unspecified (principal); Z78.0 Asymptomatic menopausal state; I10 Essential (primary) hypertension
CPT/HCPCS: 36415; 77080; 80053; 80061; 82043; 85025

== ENCOUNTER 2024-10-03 12:47 | Outpatient (OUT) | payer MEDICARE, OTHER, SELFPAY ==
--- NOTE | 2024-10-03 12:49 | MM_ITS ---
Patient Name: ALVARADO MEZA MR#: [id number] : 1950 Exam Date: 10/03/2024 Ordering Doctor: DR Cassandra Fraga M.D. RADIOLOGY REPORT PROCEDURE: MM TOMOSYNTHESIS SCREENING BI COMPARISON: MM TOMOSYNTHESIS SCREENING BI, 10/01/2023. MG MAMM RT DIAG FU, 10/14/2022. MG MAMM SCREEN 3D MAUREEN CAD, 09/28/2022. MG MAMM MAUREEN SCRN W CAD DIG, 07/17/2013. INDICATIONS: Screening Calculator Name NCI Breast Cancer Risk Assessment Tool 5 Year Breast Cancer Risk 5.30% Lifetime Breast Cancer Risk 10.50% Personal Breast Cancer No Personal Ovarian Cancer No Treatments Excision Family Cancers Sister with breast cancer at age 61; Brother with throat cancer at age 60; Brother with prostate cancer at age 70. LOCATION: [facility] BREAST COMPOSITION: The breasts are heterogeneously dense,which may obscure small masses. FINDINGS: DIAGNOSTIC CATEGORY 2--BENIGN FINDING: RIGHT BREAST: No significant suspicious finding. Scattered benign-appearing calcifications are present. Stable surgical/biopsy clips. No significant change has occurred. LEFT BREAST: No significant suspicious finding. Stable biopsy marker. No significant change has occurred. RECOMMENDATIONS: ROUTINE MAMMOGRAM AND CLINICAL EVALUATION IN 12 MONTHS. PLEASE NOTE: A NORMAL MAMMOGRAM DOES NOT EXCLUDE THE POSSIBILITY OF BREAST CANCER. A CLINICALLY SUSPICIOUS PALPABLE LUMP SHOULD BE BIOPSIED. Dictated by: Janes Morfin M.D. on 10/03/2024 at 16:35 Approved by: Janes Morfin M.D. on 10/03/2024 at 16:38
== END 2024-10-03 12:48 | disposition home or self-care (01) ==
LOC: MAMMO 12:47
PROVIDERS: PCP Family Medicine; Visit Provider Family Medicine
DX: Z12.31 Encounter for screening mammogram for malignant neoplasm of breast (principal); Z80.3 Family history of malignant neoplasm of breast; Z80.42 Family history of malignant neoplasm of prostate; Z80.8 Family history of malignant neoplasm of other organs or systems
CPT/HCPCS: 77063; 77067

== ENCOUNTER 2025-04-30 08:04 | Outpatient (OUT) | payer MEDICARE, OTHER, SELFPAY ==
--- OUTSIDE RECORDS SUMMARY | 2025-04-30 08:29 | XMS_ITS | CCD ---
Author Organization [facility]ini[facility] Care Team Providers Care Junior Brand Manager Name Role Phone MARCELINO MCPHERSON Unavailable Unavailable MARCELINO MCPHERSON Unavailable Unavailable CASSANDRA VALERO Unavailable Unavailable ANJUM, DR CASSANDRA Beltran Admitting Unavailable VALERO, DR CASSANDRA Beltran Attending Unavailable VALERO, DR CASSANDRA Beltran Primary Care Unavailable Francoebbarbara, DR Marrero Consulting Unavailable VALERO, DR CASSANDRA Beltran Consulting Unavailable VALERO, DR CASSANDRA Beltran Admitting Unavailable VALERO, DR CASSANDRA Beltran Attending Unavailable VALERO, DR CASSANDRA Beltran Primary Care Unavailable MUMFORD, DR ALYSON Pisano Consulting Unavailable VALERO, DR CASSANDRA Beltran Consulting Unavailable VALERO, DR CASSANDRA Beltran Admitting Unavailable VALERO, DR CASSANDRA Beltran Attending Unavailable VALERO, DR CASSANDRA Beltran Primary Care Unavailable VALERO, DR CASSANDRA Beltran Consulting Unavailable GRILLIArsenio, DR KVEIN Beltran Admitting Unavailabl e GRENEIDA, DR KEVIN Beltran Attending Unavailabl e VALERO, DR CASSANDRA Beltran Primary Care Unavailable VALERO, DR CASSANDRA Beltran Admitting Unavailable VALERO, DR CASSANDRA Beltran Attending Unavailable VALERO, DR CASSANDRA Beltran Primary Care Unavailable VALERO, DR CASSANDRA Beltran Consulting Unavailable VALERO, DR CASSANDRA Beltran Admitting Unavailable VALERO, DR CASSANDRA Beltran Attending Unavailable VALERO, DR CASSANDRA Beltran Primary Care Unavailable FIGUEROA, DR KEVIN Beltran Admitting Unavailabl e FIGUEROA, DR KEVIN Beltran Attending Unavailabl e VALERO, DR CASSANDRA Beltran Primary Care Unavailable GRILLIArsenio, DR KEVIN Beltran Consulting Unavailchelita COSTELLO, COLLIN Consulting Unavailable SHARP, JEFFERSON Consulting Unavailable VALERO, DR CASSANDRA Beltran Admitting Unavailable VALERO, DR CASSANDRA Beltran Attending Unavailable VALERO, DR CASSANDRA Beltran Primary Care Unavailable Francoebbarbara, DR Marrero Consulting Unavailable ANJUM, DR CASSANDRA Beltran Consulting Unavailable Cassandra Valero Unavailable MD Cassandra Valero Attending Provider [phone] Cassandra Valero Attending Unavailable Anjum, Cassandra Beltran Admitting Unavailable Unavailable Primary Care Provider UnavailZAYNAB Vasquez Attending Unavailable MERCEDEZ SANCHES Referring Unavailable Allergies Allergy Classification Reported Allergen(s) Allergy Type Date of Onset Reaction(s) Facility (1 source) patient allergy list reviewed by 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 Propensity to adverse reactions Comment:Done [place] Other (1 source) Allergies Reconciled Propensity to adverse reactions Unknown [place] Other Medications Current Medications Medication Drug Class(es) Dates Sig (Normalized) Sig (Original) ALPRAZolam 0.25 mg oral tablet (20 sources) Benzodiazepine Start: 01-05-2024 End: 11-03-2024 take 1 tablet by mouth once daily as needed for anxiety Alprazolam (Xanax) 0.25 mg tablet Active 0.25 MG PO Daily as needed for anxiety November 03, 2024 1:43pm Start: 01-04-2024 End: 01-05-2024 take 1 tablet by mouth twice daily as needed Alprazolam (Xanax) 0.25 mg tablet Discontinued 0.25 MG PO Twice daily as needed January 04, 2024 12:00am January 05, 2024 1:34pm Start: 04-12-2023 take 1 tablet by diego twice daily as needed Xanax 0.25 MG 1 tablet Orally Twice a day prn for 30 days Mar, Active escitalopram 5 mg oral tablet (1 source) Serotonin Reuptake Inhibitor Start: 01-18-2025 take 1 tablet by mouth once daily Escitalopram Oxalate (Lexapro) 5 mg tablet Active 5 MG PO Daily January 18, 2025 12:00am fluticasone propionate 0.05 mg/actuat metered dose nasal spray (6 sources) Corticosteroid Start: 12-29-2023 take 1 spray(s) nasal route once daily Fluticasone Propionate 50 mcg/actuation spray,suspension Active 2 SPRAY INTRANASAL Daily December 29, 2023 12:00am administer into each nostril latanoprost 0.05 mg/ml ophthalmic solution (7 sources) Prostaglandin Analog Start: 10-23-2024 take 1 drop(s) into the eye(s) at bedtime latanoprost (Xalatan) 0.005 % ophthalmic solution instill 1 DROP IN BOTH EYES AT BEDTIME 10/23/2024 Active Start: 02-29-2024 take 1 drop(s) into the eye(s) once daily Latanoprost 0.005 % drops Active 1 DROPS EYE-BOTH Daily February 29, 2024 12:00am Start: 02-29-2024 take 1 drop(s) into the eye(s) once daily Latanoprost Active 1 DROPS EYE-BOTH Daily February 29, 2024 12:00am 24 hr metoprolol succinate 25 mg extended release oral tablet (9 sources) beta-Adrenergic Denny Start: 09-28-2024 metopr olol succinate XL (Toprol-XL) 25 MG 24 hr tablet 09/28/2024 Active Start: 09-28-2024 Metoprolol Suc cinate 25 mg tablet extended release 24 hr Active 0 .ROUTE .COMPLEX September 28, 2024 2:19pm TAKE 1 TABLET DAILY Start: 02-28-2024 End: 09-28-2024 take 1 tablet by mouth once daily Metoprolol Succinate 25 mg tablet extended release 24 hr Discontinued 1 TAB PO Daily February 28, 2024 12:00am September 28, 2024 2:19pm FreeTextSig: TAKE 1 TABLET DAILY; Note: Source Status: Start; Refills: 3; Qty: 90 Tablet; Provider: Anjum Trujillo ( ) Metoprolol Succi harish ER 25 mg TAKE 1 TABLET DAILY Active omeprazole 40 mg delayed release oral capsule (9 sources) Proton Pump Inhibitor Start: 02-28-2024 End: 11-06-2024 take 1 capsule by mouth once daily Omeprazole 40 mg capsule,delayed release(DR/EC) Active 40 MG PO Daily November 06, 2024 5:29pm FreeTextSi capsule 30 minutes before morning meal Orally Once a day; Note: Source Status: Refill; Refills: 3; Qty: 90 Capsule; Provider: Anjum Beltran Start: 10-29-2022 take 1 capsule by [facility] once daily Omeprazole 40 MG 1 capsule 30 minutes before morning meal Orally Once a day for 90 days Oct, Active ramipril 5 mg oral capsule (11 sources) Angiotensin Converting Enzyme Inhibitor Start: 01-18-2025 Ramipril 5 mg capsule Active 0 .ROUTE .COMPLEX January 18, 2025 9:01am TAKE 1 CAPSULE DAILY Start: 11-06-2024 End: 01-18-2025 Ramipril 2.5 mg capsule Disc ontinued 0 .ROUTE .COMPLEX November 27, 2024 11:33am January 18, 2025 9:04am TAKE 1 CAPSULE DAILY Start: 02-28-2024 End: 11-06-2024 ramipril (Altace) 2.5 MG cap jose f 11/06/2024 Active Start: 10-29-2022 take 1 capsule by mo moh every twenty-four hours Ramipril 2.5 MG 1 capsule Orally Once a day for 90 days Oct, Active Completed/Discontinued Medications Medication Drug Class(es) Dates Sig (Normalized) Sig (Original) atorvastatin 10 mg oral tablet (7 sources) HMG-CoA Reductase Inhibitor Start: 02-28-2024 End: 04-13-2024 take 1 tablet by mouth once daily Atorvastatin 10 mg tablet Discontinued 1 TAB PO Daily February 28, 2024 12:00am April 13, 2024 2:59pm FreeTextSi tablet Orally Once a day; Note: Source Status: Taking; Refills: 3; Qty: 90 Tablet; Provider: Anjum Beltran Start: 10-29-2022 take 1 tablet by diego every twenty-four hours Atorvastatin Calcium 10 MG 1 tablet Orally Once a day for 90 days Oct, Active azithromycin 250 mg oral tablet (2 sources) Macrolide Antimicrobial Start: 06-27-2024 End: 01-18-2025 Azithromycin 250 mg tablet Discontinued 0 PO .COMPLEX June 27, 2024 12:00am January 18, 2025 8:49am For 250 mg dose pack: take 500 mg today (day 1), then 250 mg for 4 days (days 2-5) PO Start: 06-27-2024 Azithromycin A ctive 0 PO .COMPLEX June 27, 2024 12:00am For 250 mg dose pack: take 500 mg today (day 1), then 250 mg for 4 days (days 2-5) PO cyclobenzaprine hydrochloride 5 mg oral tablet (5 sources) Muscle Relaxant Start: 03-07-2024 End: 01-18-2025 take 1 tablet by mouth once daily at bedtime as needed for muscle spasms Cyclobenzaprine 5 mg tablet Discontinued 5 MG PO Daily at bedtime as needed for muscle spasm March 07, 2024 12:00am January 18, 2025 8:49am nitrofurantoin, macrocrystals 100 mg oral capsule (2 sources) Nitrofuran Antibacterial Start: 06-22-2024 End: 01-18-2025 take 1 capsule by mouth twice daily at mealtime Nitrofurantoin Macrocrystal 100 mg capsule Discontinued 100 MG PO Twice daily June 22, 2024 12:00am January 18, 2025 8:49am must administer with a meal/food Problems Active Problems Problem Classification Problem Date Documented Da te Episodic/Chronic Adjustment disorders (1 source) Stress; Translations: [Reaction to severe stress, unspecified] Chronic Anxiety disorders (11 sources) Anxiety disorder; Translations: [Anxiety disorder, unspecified] Onset: 09-01-2016 01-05-2024 Chronic Cardiac dysrhythmias (1 source) Cardiac arrhythmia; Translations: [Cardiac arrhythmia, unspecified] Chronic Cataract (2 sources) After-cataract of bilateral eyes; Translations: [Other secondary cataract, bilateral] Onset: 12-05-2024 12-05-2024 Chronic Chronic obstructive pulmonary disease and bronchiectasis (1 source) Bronchitis; Translations: [Bronchitis, not specified as acute or chronic] 06-28-2024 Episodic Conditions associated with dizziness or vertigo (1 source) Peripheral vertigo; Translations: [Other peripheral vertigo, bilateral] Episodic Diseases of mouth; excluding dental (1 source) Disorder of lip; Translations: [Diseases of lips] Episodic Disorders of lipid metabolism (8 sources) Hyperlipidemia, unspecified; Translations: [Hyperlipidemia] Onset: 07-06-2022 04-03-2024 Chronic Esophageal disorders (8 sources) 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; Translations: [Esophageal obstruction] Onset: 08-14-2015 Chronic Essential hypertension (10 sources) Essential (primary) hypertension; Translations: [Essential hypertension] Onset: 07-06-2022 04-03-2024 Chronic Gastritis and duodenitis (1 source) Unspecified chronic gastritis without bleeding; Translations: [UNS CHRONIC GASTRITIS W/O BLEEDING] Onset: 07-06-2022 Chronic Genitourinary symptoms and ill-defined conditions (9 sources) Dysuria; Translations: [Dysuria] Onset: 06-20-2024 06-20-2024 Episodic Glaucoma (3 sources) Glaucoma; Translations: [Unspecified glaucoma] Onset: 08-30-2015 12-05-2024 Chronic Other bone disease and musculoskeletal deformities (1 source) Bone density finding; Translations: [Other specified disorders of bone density and structure, unspecified site] Episodic Other circulatory disease (1 source) Elevated blood-pressure reading without diagnosis of hypertension; Translations: [Elevated blood-pressure reading, without diagnosis of hypertension] Episodic Other gastrointestinal disorders (5 sources) Altered bowel function; Translations: [Change in bowel habit] 03-12-2024 Episodic Other gastrointestinal disorders (1 source) Change in bowel habit; Translations: [Other symptoms involving digestive system] 02-29-2024 Episodic Other inflammatory condition of skin (1 [...] [Asymptomatic menopausal state] Episodic Residual codes; unclassified (6 sources) Menopause present; Translations: [Asymptomatic menopausal state] 02-29-2024 Episodic Residual codes; unclassified (2 sources) Asymptomatic menopausal state; Translations: [Symptomatic menopausal or [...] Onset: 03-17-2016 Episodic Other aftercare (1 source) 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; 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] Onset: 07-06-2022 Episodic [...] Test Name Value Interpretation Reference Range Facility Laboratory - Chemistry and C hemistry - challengeon 06-20-2024 Bilirubin Ql (U) Negative [facility] Glucose (U) [Mass/Vol] Negative [facility] Ketones Ql (U) Negative [facility] pH (U) 5 [pH] [facility] Specific gravity (U) [Rel density] 1.000 [facility] Urobilinogen (U) [Mass/Vol] 0.2 mg/dL [facility] Laboratory - Specimen inform ationon 06-20-2024 Appearance (U) clear [facility] Color (U) Shayna [facility] Laboratory - Urinalysison Leukocyte esterase Test strip Ql (U) Negative [facility] Nitrite Ql (U) Negative [facility] Protein Ql (U) Negative [facility] No Panel Informationon 06-20 Urine Occult Blood Negative [facility] Urine Cultureon 06-20-2024 Bacteria identified Cx Nom (U) ORGANISM: Enterococcus faecalis (O:ENTFAC) Logan Count >100,000 Aerobic ROSALIA Charge (PCMIC38) --- SUSCEPTIBILITY -- ORGANISM: O:ENTFAC ANTIBIOTIC INTERPRETATION ROSALIA Ampicillin S <2 Ciprofloxacin S <1 Daptomycin S 1 Levofloxacin S <1 Linezolid S 2 Nitrofurantoin S <32 Penicillin S 2 Tetracycline R >8 Vancomycin S 2 S = SUSCEPTIBLE I = INTERMEDIATE R = RESISTANT BLANK = DATA NOT AVAILABLE, OR DRUG NOT ADVISABLE OR TESTED R* = RESISTANCE DUE TO EXTENDED SPECTRUM BETA-LACTAMASES ESBL = EXTENDED SPECTRUM BETA-LACTAMASE TFG = THYMIDINE-DEPENDENT STRAIN JULIA = BETA-LACTAMASE POSITIVE IB = INDUCIBLE BETA-LACTAMASE. APPEARS IN PLACE OF 'S' WITH SPECIES KNOWN TO POSSESS INDUCIBLE BETA-LACTAMASES. POTENTIALLY THEY MAY BECOME RESISTANT TO ALL B-LACTAM DRUGS. PERFORMED BY: [place] [address] PATHOLOGIST MANAGER ENERGY STEFANY ALVAREZ M.D. Normal [facility] Comment on above: Performed By: #### C UU #### [facility] [address] [place] [address] Urine culture routineOrdered By: Cassandra Valero on 06-20-2024 Bacteria identified Cx Nom (U) Enterococcus faecalis Abnormal [facility] Basophils Auto (Bld) [#/Vol] on 04-03-2024 Basophils (Bld) [#/Vol] 0.1 10 3/uL 0.0-0.1 [facility] Basophils/100 WBC Auto (Bld) on 04-03-2024 Basophils/100 WBC (Bld) 0.8 % 0.2-2.0 [facility] Cholesterol in LDL Calc [Mas s/Vol]on 04-03-2024 Cholesterol in LDL [Mass/Vol] 112.4 mg/dL [facility] Comment on above: <100 mg/dl [id number] 0-129 mg/dl NEAR OR ABOVE [id number] mg/dl BORDERLINE [id number] mg/dl HIGH>190 mg/dl VERY HIGH Cholesterol in VLDL Calc [Ma ss/Vol]on 04-03-2024 Cholesterol in VLDL [Mass/Vol] 15.6 mg/dL [facility] Eosinophils/100 WBC Auto (Bl d)on 04-03-2024 Eosinophils/100 WBC (Bld) 4.4 % 0.9-7.0 [facility] Erythrocyte distribution wid th Auto (RBC) [Ratio]on 04-03-2024 Erythrocyte distribution width (RBC) [Ratio] 11.9 % 11.0-15.0 [facility] Estimated glomerular filtrat ion rate (GFR) non- Americanon 04-03-2024 GFR/1.73 sq M.predicted among non-blacks MDRD (S/P/Bld) [Vol rate/Area] 58 mL/min/{1.73_m2} Low >=60 [facility] Globulin Calc (S) [Mass/Vol] on 04-03-2024 Globulin (S) [Mass/Vol] 3.9 g/dL [facility] Hematocrit Auto (Bld) [Volum e fraction]on 04-03-2024 Hematocrit (Bld) [Volume fraction] 39.6 % 36.0-48.0 [facility] Hemoglobin [Mass/volume] in Bloodon 04-03-2024 Hemoglobin (Bld) [Mass/Vol] 13.0 g/dL 12.0-16.0 [facility] Laboratory - Chemistry and C hemistry - challengeon 04-03-2024 Albumin [Mass/Vol] 3.5 g/dL 3.4-5.0 [facility] ALP [Catalytic activity/Vol] 106 U/L 46-116 [facility] ALT [Catalytic activity/Vol] 20 U/L 14-59 [facility] AST [Catalytic activity/Vol] 17 U/L 15-37 [facility] Bilirubin [Mass/Vol] 0.6 mg/dL 0.2-1.0 [facility] Calcium [Mass/Vol] 9.6 mg/dL 8.5-10.1 [facility] Chloride [Moles/Vol] 106 mmol/L 98-107 [facility] Cholesterol [Mass/Vol] 186 mg/dL <=200 [facility] Cholesterol in HDL [Mass/Vol] 58 mg/dL 40-60 [facility] Comment on above: > or =60 mg/dl - LOW CARDIOVASCULAR RISK<40 mg/dl - HIGH CARDIOVASCULAR RISK CO2 [Moles/Vol] 29.2 mmol/L 21.0-32.0 [facility] Creatinine [Mass/Vol] 0.94 mg/dL 0.55-1.02 [facility] GFR/1.73 sq M.predicted MDRD (S/P/Bld) [Vol rate/Area] mL/min/{1.73_m2} >=60 [facility] Glucose [Mass/Vol] 102 mg/dL 74-106 [facility] Potassium [Moles/Vol] 3.7 mmol/L 3.5-5.1 [facility] Protein [Mass/Vol] 7.4 g/dL 6.4-8.2 [facility] Sodium [Moles/Vol] 144 mmol/L 136-145 [facility] Triglyceride [Mass/Vol] 78 mg/dL <=150 [facility] Urea nitrogen [Mass/Vol] 15.0 mg/dL 7.0-18.0 [facility] Urea nitrogen/Creatinine [Mass ratio] 16.0 mg/mg [facility] Laboratory - Hematology and Cell countson 04-03-2024 Immature granulocytes/100 WBC (Bld) 0.4 % 0.0-0.5 [facility] Leukocytes [#/volume] correc ehsan for nucleated erythrocytes in Blood by Automated counon 04-03-2024 WBC corrected for nucl RBC Auto (Bld) [#/Vol] 8.0 10 3/uL 4.0-11.0 [facility] Lymphocytes Auto (Bld) [#/Vo l]on 04-03-2024 Lymphocytes (Bld) [#/Vol] 1.3 10 3/uL 1.2-3.8 [facility] Lymphocytes/100 WBC Auto (Bl d)on 04-03-2024 Lymphocytes/100 WBC (Bld) 15.7 % Low 20.5-60.0 [facility] MCH Auto (RBC) [Entitic mass ]on 04-03-2024 MCH (RBC) [Entitic mass] 29.9 pg 26.7-34.0 [facility] MCHC Auto (RBC) [Mass/Vol]on 04-03-2024 MCHC (RBC) [Mass/Vol] 32.8 g/dL 29.9-35.2 [facility] MCV Auto (RBC) [Entitic vol] on 04-03-2024 MCV (RBC) [Entitic vol] 91.0 fL 81.0-99.0 [facility] Microalbumin [Mass/volume] i n Urineon 04-03-2024 Albumin DL <= 20 mg/L (U) [Mass/Vol] 1.8 mg/dL <=30.0 [facility] Monocytes Auto (Bld) [#/Vol] on 04-03-2024 Monocytes (Bld) [#/Vol] 0.6 10 3/uL 0.3-0.8 [facility] Monocytes/100 WBC Auto (Bld) on 04-03-2024 Monocytes/100 WBC (Bld) 8.0 % 1.7-12.0 [facility] Neutrophils Auto (Bld) [#/Vo l]on 04-03-2024 Neutrophils (Bld) [#/Vol] 5.6 10 3/uL 1.4-6.5 [facility] Neutrophils/100 WBC Auto (Bl d)on 04-03-2024 Neutrophils/100 WBC (Bld) 70.7 % 43.0-75.0 [facility] No Panel Informationon 04-03 Eosinophils # (Auto) 0.4 10 3/uL 0.0-0.7 [facility] Immature Granulocyte # (Auto) 0.03 10 3/uL 0.00-0.03 [facility] Platelet mean volume Auto (B ld) [Entitic vol]on 04-03-2024 Platelet mean volume (Bld) [Entitic vol] 10.3 fL 9.5-13.5 [facility] Platelets Auto (Bld) [#/Vol] on 04-03-2024 Platelets (Bld) [#/Vol] 221 10 3/uL 150-450 [facility] RBC Auto (Bld) [#/Vol]on RBC (Bld) [#/Vol] 4.35 10 6/uL 4.20-5.40 [facility] Serum or plasma albumin/glob ulin mass ratioon 04-03-2024 Albumin/Globulin [Mass ratio] 0.9 {ratio} [facility] Serum or plasma anion gap de terminationon 04-03-2024 Anion gap [Moles/Vol] 12.5 mmol/L [facility] Serum or plasma total choles terol/high density lipoprotein (HDL) cholesterol mass belen 04-03-2024 Cholesterol.total/Ch olesterol in HDL [Mass ratio] 3.2 {ratio} [facility] Comment on above: 3.3 - 4.4 LOW RISK4. 4 - 7.1 AVERAGE RISK7.1 - 11.0 MODERATE RISK>11.0 HIGH RISK MG MAMM RT DIAG FUon 023 MG MAMM RT DIAG FU Patient: ROSALBA MEZA Exam Date: 10/14/2022 : 1950 Gender:F Ordering : DR CASSANDRA VALERO M.D. Admission #: [id number] Family : Order #: [id number] CLICK HERE TO VIEW EXAM RADIOLOGY REPORT [...] prostate cancer at age 68. LOCATION: [facility] BREAST COMPOSITION: Heterogeneously dense,which may [...] August MD on 10/14/2022 at 11:37 Normal [facility] US BREAST RIGHT LIMITEDon US BREAST RIGHT LIMITED Patient: ROSALBA MEZA Exam Date: 10/14/2022 : 1950 Gender:F Ordering : DR CASSANDRA VALERO M.D. Admission #: [id number] Family : Order #: [id number] CLICK HERE TO VIEW EXAM RADIOLOGY REPORT [...] prostate cancer at age 68. LOCATION: [facility] BREAST COMPOSITION: Heterogeneously dense,which may [...] August MD on 10/14/2022 at 11:37 Normal [facility] MG MAMM SCREEN 3D MAUREEN CADon 09-28-2022 MG MAMM SCREEN 3D MAUREEN CAD Patient: ROSALBA MEZA Exam Date: 09/28/2022 : 1950 Gender:F Ordering : DR CASSANDRA VALERO M.D. Admission #: [id number] Family : Order #: [id number] CLICK HERE TO VIEW EXAM RADIOLOGY REPORT [...] prostate cancer at age 68. LOCATION: [facility] BREAST COMPOSITION: Heterogeneously dense,which may [...] M.D. on 09/29/2022 at 12:10 Normal [facility] Covid-19 PCR (CVDTBH)on SARS-CoV-2 (COVID-19) RNA OLINDA+probe Ql (Unsp spec) Not detected Normal NOT DETECTED [facility] Comment on above: Result Comment: This test is not yet approved or cleared by the [place] FDA. When there are no FDA-approved or cleared tests available, and other criteria are met, FDA can make tests available under an emergency access mechanism called an Emergency Use Authorization (EUA). The EUA for this test is supported by the [place] of Health and Human Service's (HHS's) declaration [...] SARS-CoV-2. Performed By: #### C VDTB #### [facility] [address] [place] [address] Dr. Valentin Shin CBC AUTO DIFFon 03-06-2022 BASO # 0.1 103/ul Normal 0.0-0.1 [facility] Comment on above: Performed By: #### C BC #### [facility] [address] [place] [address] Dr. Valentin Shin Basophils/100 WBC (Bld) 0.7 % Normal 0.2-2.0 [facility] Comment on above: Performed By: #### C BC #### [facility] [address] [place] [address] Dr. Valentin Shin EO # 0.1 103/ul Normal 0.0-0.7 [facility] Comment on above: Performed By: #### C BC #### [facility] [address] [place] [address] Dr. Valentin Shin Eosinophils/100 WBC (Bld) 2.0 % Normal 0.9-7.0 [facility] Comment on above: Performed By: #### C BC #### [facility] [address] [place] [address] Dr. Valentin Shin Erythrocyte distribution width (RBC) [Ratio] 12.4 % Normal 11.0-15.0 [facility] Comment on above: Performed By: #### C BC #### [facility] [address] [place] [address] Dr. Valentin Shin Hematocrit (Bld) [Volume fraction] 38.9 % Normal 36.0-48.0 [facility] Comment on above: Performed By: #### C BC #### [facility] [address] [place] [address] Dr. Valentin Shin Hemoglobin (Bld) [Mass/Vol] 12.9 g/dL Normal 12.0-16.0 [facility] Comment on above: Performed By: #### C BC #### [facility] [address] [place] [address] Dr. Valentin Shin IG # 0.01 10e3/ul Normal 0.00-0.03 [facility] Comment on above: Performed By: #### C BC #### [facility] [address] [place] [address] Dr. Valentin Shin IG % 0.1 % Normal 0.0-0.5 [facility] Comment on above: Performed By: #### C BC #### [facility] [address] [place] [address] Dr. Valentin Shin LYMPH # 1.3 103/ul Normal 1.2-3.8 [facility] Comment on above: Performed By: #### C BC #### [facility] [address] [place] [address] Dr. Valentin Shin Lymphocytes/100 WBC (Bld) 18.2 % Critically low 20.5-60.0 [facility] Comment on above: Performed By: #### C BC #### [facility] [address] [place] [address] Dr. Valentin Shin MANUAL DIFF REQ NO Normal [facility] Comment on above: Performed By: #### C BC #### [facility] [address] [place] [address] Dr. Valentin Shin MCH (RBC) [Entitic mass] 30.1 pg Normal 26.7-34.0 [facility] Comment on above: Performed By: #### C BC #### [facility] [address] [address] [address] Valentin Shin MCHC (RBC) [Mass/Vol] 33.2 g/dL Normal 29.9-35.2 [facility] Comment on above: Performed By: #### C BC #### [facility] [address] [place] [address] Dr. Valentin Shin MCV (RBC) [Entitic vol] 90.7 fL Normal 81.0-99.0 [facility] Comment on above: Performed By: #### C BC #### [facility] [address] [place] [address] Dr. Valentin Shin MONO # 0.6 103/ul Normal 0.3-0.8 [facility] Comment on above: Performed By: #### C BC #### [facility] [address] [place] [address] Dr. Valentin Shin Monocytes/100 WBC (Bld) 8.4 % Normal 1.7-12.0 [facility] Comment on above: Performed By: #### C BC #### [facility] [address] [place] [address] Dr. Valentin Shin NEUT # 5.0 103/ul Normal 1.4-6.5 [facility] Comment on above: Performed By: #### C BC #### [facility] [address] [place] [address] Dr. Valentin Shin Neutrophils/100 WBC (Bld) 70.6 % Normal 43.0-75.0 [facility] Comment on above: Performed By: #### C BC #### [facility] [address] [place] [address] Dr. Valentin Shin Platelet mean volume (Bld) [Entitic vol] 9.9 fL Normal 9.5-13.5 [facility] Comment on above: Performed By: #### C BC #### [facility] [address] [place] [address] Dr. Valentin Shin PLT 202 103/ul Normal 150-450 [facility] Comment on above: Performed By: #### C BC #### [facility] [address] [address] [address] Valentin Shin RBC 4.29 106/ul Normal 4.20-5.40 [facility] Comment on above: Performed By: #### C BC #### [facility] [address] [address] [address] Valentin Shin WBC 7.0 103/ul Normal 4.0-11.0 [facility] Comment on above: Performed By: #### C BC #### [facility] [address] [place] [address] Dr. Valentin Shin LIPID PROFILEon 03-06-2022 CHOL-HDL RATIO NORM SEE BELOW Normal [facility] Comment on above: Result Comment: 3.3 - 4.4 LOW RISK 4.4 - 7.1 AVERAGE RISK 7.1 - 11.0 MODERATE RISK >11.0 HIGH RISK Performed By: #### L IPID, CMP #### [facility] [address] [place] [address] Dr. Valentin Shin Cholesterol [Mass/Vol] 177 mg/dL Normal <=200 [facility] Comment on above: Performed By: #### L IPID, CMP #### [facility] [address] [place] [address] Dr. Valentin Shin Cholesterol in HDL [Mass/Vol] 57 mg/dL Normal 40-60 [facility] Comment on above: Performed By: #### L IPID, CMP #### [facility] [address] [place] [address] Dr. Valentin Shin Cholesterol in LDL [Mass/Vol] 101.0 mg/dL Normal [facility] Comment on above: Performed By: #### L IPID, CMP #### [facility] [address] [place] [address] Dr. Valentin Shin Cholesterol.total/Ch olesterol in HDL [Mass ratio] 3.1 {ratio} Normal [facility] Comment on above: Performed By: #### L IPID, CMP #### [facility] [address] [place] [address] Dr. Valentin Shin HDL NORMAL > or = 60 mg/dl - LO W CARDIOVASCULAR RISK <40 mg/dl - HIGH CARDIOVASCULAR RISK Normal [facility] Comment on above: Performed By: #### L IPID, CMP #### [facility] [address] [address] [address] Valentin Shin LDL CALC NORMAL SEE BELOW Normal [facility] Comment on above: Result Comment: <100 mg/dl OPTIMAL 100 - 129 mg/dl NEAR OR ABOVE OPTIMAL 130 - 159 mg/dl BORDERLINE HIGH 160 - 189 mg/dl HIGH >190 mg/dl VERY HIGH Performed By: #### L IPID, CMP #### [facility] [address] [address] [address] Valentin Shin Triglyceride [Mass/Vol] 95 mg/dL Normal <=150 [facility] Comment on above: Performed By: #### L IPID, CMP #### [facility] [address] [place] [address] Dr. Valentin Shin VLDL CALC 19.0 mg/dL Normal [facility] Comment on above: Performed By: #### L IPID, CMP #### [facility] [address] [address] [address] Valentin Shin PROF 14(COMP METB)on 022 Albumin [Mass/Vol] 3.7 g/dL Normal 3.4-5.0 [facility] Comment on above: Performed By: #### L IPID, CMP #### [facility] [address] [address] [address] Valentin Shin Albumin/Globulin [Mass ratio] 1.0 {ratio} Normal [facility] Comment on above: Performed By: #### L IPID, CMP #### [facility] [address] [address] [address] Valentin Shin ALP [Catalytic activity/Vol] 93 U/L Normal 46-116 [facility] Comment on above: Performed By: #### L IPID, CMP #### [facility] [address] [address] [address] Valentin Shin ALT [Catalytic activity/Vol] 20 U/L Normal 14-59 [facility] Comment on above: Performed By: #### L IPID, CMP #### [facility] [address] [address] [address] Valentin Shin Anion gap [Moles/Vol] 10.2 mmol/L Normal [facility] Comment on above: Performed By: #### L IPID, CMP #### [facility] [address] [address] [address] Valentin Shin AST [Catalytic activity/Vol] 17 U/L Normal 15-37 [facility] Comment on above: Performed By: #### L IPID, CMP #### [facility] [address] [address] [address] Valentin Shin Bilirubin [Mass/Vol] 0.6 mg/dL Normal 0.2-1.0 [facility] Comment on above: Performed By: #### L IPID, CMP #### [facility] [address] [place] [address] Dr. Valentin Shin Calcium [Mass/Vol] 9.8 mg/dL Normal 8.5-10.1 [facility] Comment on above: Performed By: #### L IPID, CMP #### [facility] [address] [address] [address] Valentin Shin Chloride [Moles/Vol] 107 mmol/L Normal 98-107 [facility] Comment on above: Performed By: #### L IPID, CMP #### [facility] [address] [address] [address] Valentin Shin CO2 [Moles/Vol] 28.9 mmol/L Normal 21.0-32.0 [facility] Comment on above: Performed By: #### L IPID, CMP #### [facility] [address] [address] [address] Valentin Shin Creatinine [Mass/Vol] 0.88 mg/dL Normal 0.55-1.02 [facility] Comment on above: Performed By: #### L IPID, CMP #### [facility] [address] [address] [address] Valentin Shin EGFR-AF AUSTRIAN >60 Normal >=60 [facility] Comment on above: Performed By: #### L IPID, CMP #### [facility] [address] [address] [address] Valentin Shin EGFR-NON AF AUSTRIAN >60 Normal >=60 [facility] Comment on above: Performed By: #### L IPID, CMP #### [facility] [address] [address] [address] Valentin Shin Globulin (S) [Mass/Vol] 3.6 g/dL Normal [facility] Comment on above: Performed By: #### L IPID, CMP #### [facility] [address] [address] [address] Valentin Shin Glucose [Mass/Vol] 102 mg/dL Normal 74-106 [facility] Comment on above: Performed By: #### L IPID, CMP #### [facility] [address] [address] [address] Valentin Shin Potassium [Moles/Vol] 4.1 mmol/L Normal 3.5-5.1 [facility] Comment on above: Performed By: #### L IPID, CMP #### [facility] [address] [address] [address] Valentin Shin Protein [Mass/Vol] 7.3 g/dL Normal 6.4-8.2 [facility] Comment on above: Performed By: #### L IPID, CMP #### [facility] [address] [address] [address] Valentin Shin Sodium [Moles/Vol] 142 mmol/L Normal 136-145 [facility] Comment on above: Performed By: #### L IPID, CMP #### [facility] [address] [address] [address] Valentin Shin Urea nitrogen [Mass/Vol] 17.0 mg/dL Normal 7.0-18.0 [facility] Comment on above: Performed By: #### L IPID, CMP #### [facility] [address] [address] [address] Valentin Shin Urea nitrogen/Creatinine [Mass ratio] 19.3 mg/mg Normal [facility] Comment on above: Performed By: #### L IPID, CMP #### [facility] [address] [address] [address] Valentin Shin OVER READ - NCon 04-20-2018 OVER READ - NC DATE OF EXAM: Apr 20 2018 1:16PMCLINICAL HISTORY/ Name: HALEY MEZAY:OVER READ - [place]; 04/20/2018 1:16 pmINDICATION:score.[employer] PARISON:None. YARY CLINICIAN:MARCELINO ALVA:The following is to serve as [...] demonstrate a small hiatal hernia though otherwise unremarkable.Visualize d osseous and soft tissue structures of the chest wall are intact.CONCLUSION: IMPRESSION:Bibasilar linear atelectasis, greater on the left.5 mm sub nodule in the lingula. Continued CT surveillance is recommended which can be performed in 6 months.Small hiatal hernia. Normal [facility] Healthcare Vital Signs Date Time Vital Sign Value Performing Clinician Alina milton 01-18-2025 08:43-0400 Body height 154.[address] [facility] 01-18-2025 08:43-0400 Body mass index (BMI) [Ratio] 28.9 kg/m2 [facility] 01-18-2025 08:43-0400 Body weight 69.[address] [facility] 01-18-2025 08:43-0400 Diastolic blood pressure 76 mm[Hg] [facility] 01-18-2025 08:43-0400 Heart rate 66 /min [facility] 01-18-2025 08:43-0400 Systolic blood pressure 133 mm[Hg] [facility] 06-27-2024 13:33-0400 Body height 154.94 cm MD Cassandra Valero Work Phone: [facility] 06-27-2024 13:33-0400 Body mass index (BMI) [Ratio] 28.1 kg/m2 MD Cassandra Valero Work Phone: [facility] 06-27-2024 13:33-0400 Body temperature 98.5 [degF] MD Cassandra Valero Work Phone: [facility] 06-27-2024 13:33-0400 Body weight 67.58 kg MD Cassandra Valero Work Phone: [facility] 06-27-2024 13:33-0400 Diastolic blood pressure 76 mm[Hg] MD Cassandra Valero Work Phone: [facility] 06-27-2024 13:33-0400 Heart rate 76 /min MD Cassandra Valero Work Phone: [facility] 06-27-2024 13:33-0400 Systolic blood pressure 136 mm[Hg] MD Cassandra Valero Work Phone: [facility] 04-13-2024 14:18-0400 Body height 154.[address] [facility] 04-13-2024 14:18-0400 Body mass index (BMI) [Ratio] 30.9 kg/m2 [facility] 04-13-2024 14:18-0400 Body weight 74.[address] [facility] 04-13-2024 14:18-0400 Diastolic blood pressure 76 mm[Hg] [facility] 04-13-2024 14:18-0400 Heart rate 66 /min [facility] 04-13-2024 14:18-0400 Systolic blood pressure 155 mm[Hg] [facility] 02-29-2024 11:11-0400 Body height 156.[address] [facility] 02-29-2024 11:11-0400 Body mass index (BMI) [Ratio] 28.8 kg/m2 [facility] 02-29-2024 11:11-0400 Body weight 70.[address] [facility] 02-29-2024 11:110400 Diastolic blood pressure 79 mm[Hg] [facility] 02-29-2024 11:040 Heart rate 73 /min [facility] 02-29-2024 11:0400 Systolic blood pressure 127 mm[Hg] [facility] Encounters Encounter Date Encounter Type Care Provider Facility Start: 01-18-2025 End: 01-18-2025 ambulatory [facility] Work Phone: Start: 01-18-2025 End: 01-18-2025 Patient encounter procedure [facility] Work Phone: Start: 12-05-2024 End: 12-05-2024 ambulatory ZAYNAB ALLEN Not Available Start: 12-05-2024 End: 12-05-2024 Bamboo flowsheet Zaynab Allen DO Work Phone: [facility] Start: 12-05-2024 End: 12-05-2024 Bamboo flowsheet Zaynab Allen DO Work Phone: [facility] Start: 06-27-2024 End: 06-27-2024 ambulatory MD Cassandra Valero Work Phone: [facility] Work Phone: Start: 06-27-2024 End: 06-27-2024 Patient encounter procedure MD Cassandra Valero Work Phone: [facility] Work Phone: Start: 06-20-2024 End: 06-20-2024 Patient encounter procedure [facility] Work Phone: Start: 06-20-2024 End: 06-20-2024 ambulatory Cassandra Valero [facility] Work Phone: Start: 06-20-2024 End: 06-20-2024 Departed Referred MD Cassandra Valero Work Phone: [facility] [employer] Work Phone: Start: 04-19-2024 Patient encounter procedure [facility] Start: 04-13-2024 End: 04-13-2024 ambulatory [facility] Work Phone: Start: 04-13-2024 End: 04-13-2024 Patient encounter procedure [facility] Work Phone: Start: 04-03-2024 Non-patient / Non-visit [facility] [employer] Work Phone: Start: 02-29-2024 End: 02-29-2024 ambulatory [facility] Work Phone: Start: 02-29-2024 End: 02-29-2024 Patient encounter procedure [facility] Work Phone: Start: 01-04-2024 Non-patient / Non-visit [facility] [employer] Work Phone: Start: 10-28-2023 End: 10-28-2023 ambulatory Cassandra Valero Other [employer] Other Start: 10-28-2023 Telephone encounter Cassandra Valero [facility] Start: 10-14-2022 End: 10-15-[address] CASSANDRA VLAERO Facility:[facility]1 Start: 09-28-2022 End: 09-29-[address] CASSANDRA VALERO Facility:[facility] Start: 09-01-2022 End: 09-09-[address] CASSANDRA VALERO Facility:[facility] Start: 08-19-2022 End: 08-20-[address] CASSANDRA VALERO Facility:[facility] Start: 08-17-2022 Adult health examination Cassandra Valero Other [employer] Other Start: 07-01-2022 End: 07-01-[address] KEVIN MARTI Facility:[facility] Start: 06-27-[address] KEVIN MARTI Fa cility:[facility]1 Start: 04-28-2022 End: 04-29-[address] CASSANDRA VALERO Facility:[facility] Start: 03-10-2022 Encounter for genera l adult medical examination without abnormal findings DR CASSANDRA VALERO [facility] Start: 03-06-2022 End: 03-07-[address] CASSANDRA VALERO Facility:[facility] Start: 03-06-2022 End: 03-07-2022 Encounter for general adult medical examination without abnormal findings DR CASSANDRA VALERO Facility:[facility] Start: 04-20-2018 Patient encounter MARCELINO MCPHERSON Fa cility:[id number] Start: 04-20-2018 Patient encounter Facil ity:[id number] Procedures Date Procedure Procedure Detail Performing Clinician Start: 12-05-2024 End: 12-05-2024 [facility] medical xm&eval compre new pt 1/> vst Bilateral posterior capsular opacification Zaynab Allen DO Work Phone: Comment on above: Bilateral posterior capsular opacification (Primary Dx); Primary open angle glaucoma (POAG) of both eyes, mild stage (CMS/HCC) Start: 06-20-2024 Urine culture MD Cassandra Valero Work Phone: Start: 06-14-2015 Screening mammography Teddy Valero Other General examination of patient Cassandra Valero Other Screening for malign ant neoplasm of breast Cassandra Valero Other Plan of Treatment Date Care Activity Detail Author Start: 06-20-2024 Bacteria identified in Urine by Culture [facility] DXA Skeletal system. axial Views for bone density [facility] Immunizations Immunization Date Immunization Notes Care Provider Fa cility 07-31-2022 COVID-19 Pfizer (Pediatric) Cassandra Valero Other [facility] 07-07-2022 influenza virus vaccine, split virus (incl. purified surface antigen) Cassandra Valero Other [employer] Other 07-07-2022 influenza virus vaccine, unspecified formulation [facility] 03-23-2022 COVID-19 Vaccine Pfi zer - Documentation Purposes Only Cassandra Valero Other [facility] 08-01-2021 influenza virus vaccine, split virus (incl. purified surface antigen) Cassandra Valero Other [employer] Other 08-01-2021 influenza virus vaccine, unspecified formulation [facility] 06-23-2021 COVID-19 Vaccine Pfi zer - Documentation Purposes Only Cassandra Valero Other [facility] 06-22-2020 influenza virus vaccine, split virus (incl. purified surface antigen) Cassandra Valero Other [facility] [employer] Other 06-22-2020 influenza virus vaccine, unspecified formulation [facility] 08-04-2017 influenza virus vaccine, split virus (incl. purified surface antigen) Cassandra Valero Other [facility] [employer] Other 08-04-2017 influenza virus vaccine, unspecified formulation [facility] 08-07-2016 influenza virus vaccine, split virus (incl. purified surface antigen) Cassandra Valero Other [facility] [employer] Other 08-07-2016 influenza virus vaccine, unspecified formulation [facility] 03-06-2016 pneumococcal conjuga te vaccine, 13 valent Cassandra Valero Other [facility] 03-06-2016 pneumococcal Conjuga te, unspecified formulation; Translations: [Need for prophylactic vaccination against Streptococcus pneumoniae (pneumococcus)] Cassandra Valero Other [facility] [employer] Other 08-27-2015 influenza virus vaccine, split virus (incl. purified surface antigen) Cassandra Valero Other [employer] Other 08-27-2015 influenza virus vaccine, unspecified formulation [facility] 07-03-2014 tetanus and diphther ia toxoids, adsorbed, preservative free, for adult use (5 Lf of tetanus toxoid and 2 Lf of diphtheria toxoid) Cassandra Valero Other [facility] 07-18-2013 tetanus and diphther ia toxoids, adsorbed, preservative free, for adult use (5 Lf of tetanus toxoid and 2 Lf of diphtheria toxoid) Cassandra Anjum Other [facility] Payers Date Payer Category Payer Self-pay 2021 Private Health Insurance [employer] [id number] 2013 Medicare MEDICARE [id number] 1959 Medicare [id number] 1959 Unknown [id number] 1948 Unknown [id number] 1948 Unknown [id number] 59 1948 Unknown [id number] 59 1948 Unknown [id number]. 59 1948 Unknown [id number]. 593 1948 Unknown [id number]. 593 1948 Unknown [id number]. 593 1948 Unknown [id number]. 593 1948 Unknown [id number] 1259 Medicare Medicare [id number] Unknown ROSALBA MEZA Unknown [id number] Social History Date Type Detail Facility Unknown if ever smoked [facility] [employer] Other Sex Assigned At [facility] [employer] Other Start: 1950 Sex Assigned At Female [facility] Tobacco smoking status [facility] Tobacco smoking consumption unknown [facility] Start: 1950 Sex assigned at Not on file [facility] Start: 12-05-2024 Tobacco smoking status RIIS Never smoked tobacco [facility] Start: 12-05-2024 Tobacco use and exposure Smokeless tobacco non-user [facility] Start: 01-18-2025 Sex Female (finding) [facility] NEGATED: Highlighted rowStart: NINF History of tobacco use Passive smoker [facility] History of Present illness Narrative 12-05-2024 Zaynab Allen, - 12/05/2024 3:00 PM EDT Note Date & Type Note Facility 12-05-2024 History of Presen t illness Narrative Images from the original note were not included. Subjective Patient ID: Maryjane Meza is a 74 y.o. female. Chief Complaint YAG; Blurred Vision HPI YAG In both eyes. Blurred Vision In both eyes. Onset was gradual. Vision is blurred and difficult to focus. Severity is moderate. Occurring constantly. It is worse throughout the day. Context: mid-range vision, reading, watching TV and computer work. Since onset it is gradually worsening. Associated symptoms include glare and haloes. Treatments tried include eye drops and glasses. Response to treatment was mild improvement. Comments Pt in for YAG consult referral from Dr. Candelario. Left more than right. Pt says vision is blurry from time to time. Last edited by Zaynab Allen DO on 12/05/2024 3:50 PM. Current Outpatient Medications (Ophthalmic Agents) Medication Sig Dispense Refill latanoprost (Xalatan) 0.005 % ophthalmic solution instill 1 DROP IN BOTH EYES AT BEDTIME No current facility-administered medications for this visit. (Ophthalmic Agents) Current Outpatient Medications (Other) Medication Sig Dispense Refill metoprolol succinate XL (Toprol-XL) 25 MG 24 hr tablet omeprazole (PriLOSEC) [address] capsule ramipril (Altace) 2.5 MG capsule ALPRAZolam (Xanax) 0.25 MG tablet Take 0.25 mg by mouth Daily as needed for anxiety No current facility-administered medications for this visit. (Other) Past Medical History: Diagnosis Date Anxiety GERD (gastroesophageal reflux disease) Glaucoma ([facility]) Hypertension (CMS/[facility]) IOL present in anterior chamber Wears glasses No Known Allergies Review of Systems Constitutional: Negative. HENT: Negative. Eyes: Negative. Respiratory: Negative. Cardiovascular: Negative. Gastrointestinal: Negative. Genitourinary: Negative. Musculoskeletal: Negative. Skin: Negative. Neurological: Negative. Psychiatric/Behavioral: Negative. Hematological: Negative. Endocrine: Negative. Allergic/Immunologic: Negative. Objective Base Eye Exam Visual Acuity (Snellen - Linear) Right Left Dist cc 20/30 20/50 Correction: Glasses Tonometry (Applanation, 3:52 PM) Right Left Pressure 20 18 Pupils Pupils Right PERRL Left PERRL Visual Haro Left Right Full Full Extraocular Movement Right Left Full, Ortho Full, Ortho Neuro/Psych Oriented x3: Yes Dilation Both eyes: 1.0% Mydriacyl @ 3:29 PM Additional Tests Glare Testing High Right 20/100 Left 20/200 Slit Lamp and Fundus Exam External Exam Right Left External Normal Normal Slit Lamp Exam Right Left Lids/Lashes Blepharitis, Dermatochalasis - upper lid Blepharitis, Dermatochalasis - upper lid Conjunctiva/Sclera White and quiet White and quiet Cornea Decreased tear film Decreased tear film Anterior Chamber Deep and quiet Deep and quiet Iris Round and reactive Round and reactive Lens Posterior chamber intraocular lens, 2+ Posterior capsular opacification Posterior chamber intraocular lens, 3+ Posterior capsular opacification Anterior Vitreous Normal Normal Fundus Exam Right Left Disc Thin rim Normal C/D Ratio 0.75 0.6 Macula Normal Normal Vessels Normal Normal Periphery Normal Normal Assessment/Plan Bilateral posterior capsular opacification - PCO OU: (Posterior Capsule Opacification) Can be observed without intervention if PCO is not visually significant. Nd:YAG laser capsulotomy may be considered if impairment of vision rises to a level that dose not meet the patient's functional needs or interferes with activities of daily living. Risks, benefits and alternatives to the procedure will be reviewed. 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 Primary open angle glaucoma (POAG) of both eyes, mild stage (CMS/HCC) - Primary open angle glaucoma OU - Importance of taking medications as prescribed was stressed. Patient was advised to report any inability or unwillingness to take medications or if cost is a concern. Patient must report any side effects that may develop. Patient must report any change in systemic medications as they may interact or interfere with their glaucoma medications. Patient will be dilated at least on an annual basis for optic nerve evaluation and will likely have an automated visual field examination at least once a year. It was explained to the patient that they might require additional treatment for intraocular pressure control such as laser therapy or surgical intervention - Today, intraocular pressure (IOP) was 20/18. I have not been following since her cataract extraction (CE) and MIGS procedure. She currently uses Latanoprost. Watch right eye (OD) as this nerve looks more suspicious than left eye (OS). May need additional therapy. documented in this encounter [facility] Clinical Note 08-20-2022 Note Date & Type Note Facility 11-24-2022 Note PROCEDURE: XR HIP RT 2 3V WO PELVIS HISTORY: Pain in right hip joint ; acute right hip pain, no known injury COMPARISON: None. FINDINGS: BONES:No fracture, acute abnormality, or significant arthropathy. SOFT TISSUES:No visible soft tissue swelling. EFFUSION:None visible. OTHER: Negative. IMPRESSION: 1. No acute bone abnormality or significant degenerative joint disease. Electronically authenticated by: JANES MORFIN Date: 2022-08-19 23:15 [facility] Evaluation note Note Date & Type Note Facility Evaluation note No Information [facility] [employer] Other Evaluation note Note Date & Type Note Facility Evaluation note Diagnosis Onset Date Menopause acute [facility] Work Phone: Evaluation note Note Date & Type Note Facility Evaluation note Diagnosis Onset Date Bowel habit changes acute Menopause acute [facility] Work Phone: Evaluation note Note Date & Type Note Facility Evaluation note Diagnosis Onset Date Anxiety acute [facility] (primary) hypertension acute Medicare annual wellness visit, subsequent acute Urinary frequency acute [facility] Work Phone: Evaluation note Note Date & Type Note Facility Evaluation note Diagnosis Bilateral posterior capsular opacification- Primary Unspecified after-cataract Primary open angle glaucoma (POAG) of both eyes, mild stage (CMS/HCC) documented in this encounter [facility] Evaluation note Note Date & Type Note Facility Evaluation note No assessment information availa [facility] Work Phone: History general Narrative - Reported [...] biopsy 2006 L knee arthroscopic surgery - 2001 - [facility], Problem Status : Active, Surgical History Problem Title : surg ical procedures, hx of, Problem Description : surgical procedures, hx of, Problem Comment : Basal cell cancer s/p Mohs R breast stereotactic biopsy 2007, Problem Status : Active, Surgical History 1: [...] - Dr. Marti, Problem Status : Active, [employer] Other Summary Purpose Family History Relationship Condition Age at Onset Recorded Date/T samira brother Malignant neoplasm Unknown father Unknown Not Specified Unknown Diabetes mellitus Unknown Heart disease Unknown sister History of stroke Unknown Malignant neoplasm Unknown Hypertension Unknown Relationship Condition Age at Onset Recorded Date/T samira brother Malignant neoplasm Unknown father Unknown mother Unknown Diabetes mellitus Unknown Heart disease Unknown sister History of stroke Unknown Malignant neoplasm Unknown Hypertension Unknown Advance Directives Advance Directive Response Recorded Date/ Time Advance Directives No February 28 11:00am Chief Complaint and Reason for Visit Chief Complaint Amb Documentation stomach issues Reason for Visit Menopause Chief Complaint stomach issues wellness Reason for Visit Bowel habit changes Menopause Chief Complaint wellness frequency, burning Reason for Visit Anxiety Essential (primary) hypertension Medicare annual wellness visit, subsequent Urinary frequency Chief Complaint wellness R35.0 frequency, burning cold symptoms Reason for Visit Anxiety Essential (primary) hypertension Medicare annual wellness visit, subsequent Urinary frequency Chief Complaint Admit Date bp concerns January 18, 2025 8:4 1am Additional Source Comments INFORMATION SOURCE (unrecogn ized section and content) DATE CREATED AUTHOR 04/21/2018 [facility] DATE CREATED AUTHOR AUTHOR'S ORGANIZ ATION 04/21/2018 [facility] DATE CREATED AUTHOR AUTHOR'S ORGANIZ ATION 10/15/2022 [facility] DATE CREATED AUTHOR AUTHOR'S ORGANIZ ATION 06/29/2024 [facility] DATE CREATED AUTHOR AUTHOR'S ORGANIZ ATION 12/08/2024 [facility] EPIC REASON FOR VISIT (unrecogniz ed section and content) Reason Comments [facility] Care Teams (unrecognized sec tion and content) Team Status: Active Member Role Status Krystian Valero MD Primary Care Provider Active Team Status: Inactive Member Role Status Krystian Valero MD Primary Care Provide r, Attending Provider Active Start: January 18, 2025 End: January 18, 2025 Team Status: Active Member Role Status Krystian Valero MD Primary Care Provider Active Team Status: Active Member Role Status Krystian Valero MD Primary Care Provide r, Attending Provider Active Start: April 03, 2024 Team Status: Inactive Member Role Status Krystian Valero MD Primary Care Provide r, Attending Provider Active Start: April 13, 2024 End: April 13, 2024 Team Status: Inactive Member Role Status Krystian Valero MD Primary Care Provide r, Attending Provider Active Start: June 20, 2024 End: June 20, 2024 Team Status: Inactive Member Role Status Krystian Valero MD Primary Care Provide r, Attending Provider Active Start: February 29, 2024 End: February 29, 2024 Team Status: Active Member Role Status Krystian Valero MD Primary Care Provider Active Start: January 04, 2024 DARYL Copeland Attending Provider Active Start : January 04, 2024 Team Status: Inactive Member Role Status Krystian Valero MD Attending Provider Active St art: June 20, 2024 End: June 20, 2024 Team Status: Inactive Member Role Status Krystian Valero MD Primary Care Provide r, Attending Provider Active Start: June 27, 2024 End: June 27, 2024 Team Status: Inactive Member Role Status Krystian Valero MD Primary Care Provide r, Attending Provider Active Start: January 18, 2025 End: January 18, 2025 Goals (unrecognized section and content) Goals may [...] BE BASED ON THE PRIMARY CLINICAL RECORDS. [facility]. provides no warranty or guarantee of the accuracy or completeness of information in this document.
[2025-04-30 08:41] LABS: Hematocrit 40.8 % (36.0-48.0); Hemoglobin 13.5 g/dL (12.0-16.0); Immature Granulocytes Abs Auto 0.02 10^3/uL (0.00-0.03); Immature Granulocytes Pct Auto 0.3 % (0.0-0.5); Lymphocytes Absolute Auto 1.2 10^3/uL (1.2-3.8); Mean Corpuscular HGB Conc 33.1 g/dL (29.9-35.2); Mean Corpuscular Hemoglobin 30.1 pg (26.7-34.0); Mean Corpuscular Volume 91.1 fL (81.0-99.0); Platelet Count 209 10^3/uL (150-450); Red Blood Count 4.48 10^6/uL (4.20-5.40); White Blood Count 6.6 10^3/uL (4.0-11.0)
[2025-04-30 09:16] LABS: Alanine Aminotransferase 23 U/L (14-59); Albumin Globulin Ratio 0.9; Albumin Level 3.6 g/dL (3.4-5.0); Alkaline Phosphatase 107 U/L (46-116); Anion Gap 8.7; Aspartate Amino Transferase 17 U/L (15-37); Blood Urea Nitrogen 16.0 mg/dL (7.0-18.0); Calcium 10.2 mg/dL (8.5-10.1); Carbon Dioxide 30.9 mmol/L (21.0-32.0); Chloride 104 mmol/L (98-107); Cholesterol 237 mg/dL (<=200); Estimated GFR (African America >60 (>=60 mL/min/1.73m^2); Estimated GFR (Non-African Ame >60 (>=60 mL/min/1.73m^2); Globulin 3.9 g/dL; Glucose 100 mg/dL (74-106); HDL Cholesterol 56 mg/dL (40-60); Potassium 3.6 mmol/L (3.5-5.1); Sodium 140 mmol/L (136-145); Total Protein 7.5 g/dL (6.4-8.2); Triglycerides 138 mg/dL (<=150); VLDL CHOLESTEROL 27.6 mg/dL
[2025-04-30 12:47] LABS: Microalbum Creatinine Ratio Ur 10.5 mg/g (0.0-29.9)
== END 2025-04-30 08:05 | disposition home or self-care (01) ==
LOC: LAB 08:08
PROVIDERS: PCP Family Medicine; Visit Provider Family Medicine
DX: Z00.00 Encounter for general adult medical examination without abnormal findings (principal); E78.5 Hyperlipidemia, unspecified; I10 Essential (primary) hypertension
CPT/HCPCS: 36415; 80053; 80061; 82043; 82570; 85025